=== PATIENT | female | born 1940 | race Caucasian/White ===

== ENCOUNTER 2019-10-30 17:29 | Inpatient (IN) | payer MEDICARE, OTHER ==
[2019-10-30] MEDS ORDERED: Lorazepam 0.5 MG TAB PO PRN (20:43)
[2019-10-30] MEDS ORDERED: Ondansetron ODT 4 MG TAB PO PRN (20:43)
[2019-10-30] MEDS: hydrALAZINE 25 MG TAB PO SCH (21:57)
[2019-10-30] MEDS: Melatonin 3 MG TAB PO SCH (21:58)
[2019-10-30] MEDS: Gabapentin 300 MG CAP PO SCH (21:58)
[2019-10-30] MEDS: traZODone HCl 50 MG TAB PO SCH (21:58)
[2019-10-30] MEDS: HYDROcodone/Acetaminophen 10/325 mg Tablet PO PRN (22:51)
[2019-10-31] MEDS: HYDROcodone/Acetaminophen 10/325 mg Tablet PO PRN ×2 (04:54→09:31)
[2019-10-31] MEDS: FLUoxetine HCl 10 MG CAP PO SCH (08:57)
[2019-10-31] MEDS: Cholecalciferol 1,000 UNITS (25 MCG) TAB PO SCH (08:57)
[2019-10-31] MEDS: Losartan Potassium 50 MG TAB PO SCH (08:58)
[2019-10-31] MEDS: Ferrous Sulfate 325 MG TAB PO SCH (08:58)
[2019-10-31] MEDS: NIFEdipine XL 30 MG TAB PO SCH (08:58)
[2019-10-31] MEDS: hydrALAZINE 25 MG TAB PO SCH ×3 (08:59→20:54)
[2019-10-31] MEDS: traMADol HCl 50 MG TAB PO PRN (20:54)
[2019-10-31] MEDS: Gabapentin 300 MG CAP PO SCH (20:55)
[2019-10-31] MEDS: traZODone HCl 50 MG TAB PO SCH (20:55)
[2019-10-31] MEDS: Melatonin 3 MG TAB PO SCH (20:55)
[2019-11-01] MEDS: HYDROcodone/Acetaminophen 10/325 mg Tablet PO PRN ×2 (03:52→10:44)
[2019-11-01] MEDS: Losartan Potassium 50 MG TAB PO SCH (09:27)
[2019-11-01] MEDS: hydrALAZINE 25 MG TAB PO SCH ×3 (09:28→20:51)
[2019-11-01] MEDS: Ferrous Sulfate 325 MG TAB PO SCH (09:28)
[2019-11-01] MEDS: FLUoxetine HCl 10 MG CAP PO SCH (09:29)
[2019-11-01] MEDS: Cholecalciferol 1,000 UNITS (25 MCG) TAB PO SCH (09:29)
[2019-11-01] MEDS: NIFEdipine XL 30 MG TAB PO SCH (09:30)
[2019-11-01] MEDS: Gabapentin 300 MG CAP PO SCH (20:51)
[2019-11-01] MEDS: Melatonin 3 MG TAB PO SCH (20:51)
[2019-11-01] MEDS: traZODone HCl 50 MG TAB PO SCH (20:51)
[2019-11-02 04:53] LABS: #Basophils 0.1 thou/uL (0.0-0.2); #Eosinphils 0.3 thou/uL (0.0-0.7); #Lymphocytes 1.7 thou/uL (1.20-3.40); #Neutrophils 5.2 thou/uL (1.40-6.50); %Basophils 1.8 % (0.0-1.0); %Eosinophils 3.3 % (0.0-10.0); %Lymphocytes 20.5 % (21.0-51.0); %Monocytes 11.9 % (0.0-10.0); %Neutrophils 62.5 % (42.0-75.0); Hemoglobin 9.3 g/dL (12.0-16.0); Mean Corpuscular Hemoglobin 30.9 pg (27.0-31.0); Mean Corpuscular Volume 96.6 fL (78.0-98.0); Mean Platelet Volume 6.2 fL (7.4-10.4); Platelet Count 209 thou/uL (130-400); RBC Distribution Width 12.1 % (11.5-14.5); Red Blood Cell (RBC) Count 2.99 mill/uL (4.20-5.40); White Blood Cell (WBC) Count 8.3 thou/uL (4.8-10.8)
[2019-11-02 05:05] LABS: Anion Gap 15 mmol/L (10-20); BUN (Urea Nitrogen) 27 mg/dL (9.8-20.1); Calc. Creatinine Clearance 32 mL/min (70-130); Calcium 8.5 mg/dL (7.8-10.44); Carbon Dioxide 18 mmol/L (23-31); Chloride 100 mmol/L (98-107); Estimated GFR-MDRD 22; Glucose 102 mg/dL (83-110); Potassium 4.6 mmol/L (3.5-5.1); Sodium 128 mmol/L (136-145)
[2019-11-02] MEDS: hydrALAZINE 25 MG TAB PO SCH ×3 (08:51→20:11)
[2019-11-02] MEDS: NIFEdipine XL 30 MG TAB PO SCH (08:52)
[2019-11-02] MEDS: FLUoxetine HCl 10 MG CAP PO SCH (08:52)
[2019-11-02] MEDS: Ferrous Sulfate 325 MG TAB PO SCH (08:52)
[2019-11-02] MEDS: Cholecalciferol 1,000 UNITS (25 MCG) TAB PO SCH (08:53)
[2019-11-02] MEDS: Losartan Potassium 50 MG TAB PO SCH (08:53)
[2019-11-02] MEDS: HYDROcodone/Acetaminophen 10/325 mg Tablet PO PRN ×2 (08:57→20:10)
[2019-11-02] MEDS: traMADol HCl 50 MG TAB PO PRN (15:13)
[2019-11-02] MEDS: traZODone HCl 50 MG TAB PO SCH (20:12)
[2019-11-02] MEDS: Gabapentin 300 MG CAP PO SCH (20:12)
[2019-11-02] MEDS: Melatonin 3 MG TAB PO SCH (20:15)
[2019-11-03] MEDS: traMADol HCl 50 MG TAB PO PRN ×2 (05:35→14:15)
[2019-11-03] MEDS: FLUoxetine HCl 10 MG CAP PO SCH (09:23)
[2019-11-03] MEDS: Ferrous Sulfate 325 MG TAB PO SCH (09:23)
[2019-11-03] MEDS: Cholecalciferol 1,000 UNITS (25 MCG) TAB PO SCH (09:23)
[2019-11-03] MEDS: NIFEdipine XL 30 MG TAB PO SCH (09:25)
[2019-11-03] MEDS: hydrALAZINE 25 MG TAB PO SCH ×3 (09:25→21:03)
[2019-11-03] MEDS: Losartan Potassium 50 MG TAB PO SCH (09:26)
[2019-11-03] MEDS: HYDROcodone/Acetaminophen 10/325 mg Tablet PO PRN ×2 (09:51→21:07)
[2019-11-03] MEDS: Gabapentin 300 MG CAP PO SCH (21:03)
[2019-11-03] MEDS: Melatonin 3 MG TAB PO SCH (21:03)
[2019-11-03] MEDS: traZODone HCl 50 MG TAB PO SCH (21:03)
[2019-11-04] MEDS: traMADol HCl 50 MG TAB PO PRN ×3 (05:57→20:55)
[2019-11-04] MEDS: hydrALAZINE 25 MG TAB PO SCH ×3 (08:45→20:55)
[2019-11-04] MEDS: Ferrous Sulfate 325 MG TAB PO SCH (08:47)
[2019-11-04] MEDS: FLUoxetine HCl 10 MG CAP PO SCH (08:47)
[2019-11-04] MEDS: NIFEdipine XL 30 MG TAB PO SCH (08:47)
[2019-11-04] MEDS: Cholecalciferol 1,000 UNITS (25 MCG) TAB PO SCH (08:48)
[2019-11-04] MEDS: Losartan Potassium 50 MG TAB PO SCH (08:48)
[2019-11-04] MEDS: HYDROcodone/Acetaminophen 10/325 mg Tablet PO PRN (09:19)
[2019-11-04] MEDS ORDERED: Nystatin Cream 15 GM TUBE TOP SCH (17:00)
[2019-11-04] MEDS ORDERED: Lidocaine Viscous Sol 2% 15 ml UD Cup SSP PRN (17:34)
[2019-11-04] MEDS: Cyclobenzaprine 10 MG TAB PO PRN (20:55)
[2019-11-04] MEDS: Nystatin Cream 15 GM TUBE TOP SCH (20:56)
[2019-11-04] MEDS: Gabapentin 300 MG CAP PO SCH (20:56)
[2019-11-04] MEDS: Melatonin 3 MG TAB PO SCH (20:56)
[2019-11-04] MEDS: traZODone HCl 50 MG TAB PO SCH (20:56)
[2019-11-05] MEDS: traMADol HCl 50 MG TAB PO PRN ×3 (03:14→20:28)
[2019-11-05] MEDS: Acetaminophen 325 MG TAB PO PRN ×2 (08:32→14:34)
[2019-11-05] MEDS: Ferrous Sulfate 325 MG TAB PO SCH (08:32)
[2019-11-05] MEDS: Cholecalciferol 1,000 UNITS (25 MCG) TAB PO SCH (08:32)
[2019-11-05] MEDS: FLUoxetine HCl 10 MG CAP PO SCH (08:33)
[2019-11-05] MEDS: NIFEdipine XL 30 MG TAB PO SCH (08:33)
[2019-11-05] MEDS: hydrALAZINE 25 MG TAB PO SCH ×3 (08:34→20:29)
[2019-11-05] MEDS: Nystatin Cream 15 GM TUBE TOP SCH ×2 (08:35→20:29)
[2019-11-05] MEDS: Losartan Potassium 50 MG TAB PO SCH (08:35)
[2019-11-05] MEDS: Cyclobenzaprine 10 MG TAB PO PRN (20:29)
[2019-11-05] MEDS: Gabapentin 300 MG CAP PO SCH (20:29)
[2019-11-05] MEDS: Melatonin 3 MG TAB PO SCH (20:29)
[2019-11-05] MEDS: traZODone HCl 50 MG TAB PO SCH (20:29)
[2019-11-05] MEDS: Milk Of Magnesia 30 ML UDCUP PO PRN (20:30)
[2019-11-06] MEDS: Cholecalciferol 1,000 UNITS (25 MCG) TAB PO SCH (09:24)
[2019-11-06] MEDS: FLUoxetine HCl 10 MG CAP PO SCH (09:24)
[2019-11-06] MEDS: hydrALAZINE 25 MG TAB PO SCH ×3 (09:24→21:05)
[2019-11-06] MEDS: NIFEdipine XL 30 MG TAB PO SCH (09:25)
[2019-11-06] MEDS: Cyclobenzaprine 10 MG TAB PO PRN ×2 (09:25→15:40)
[2019-11-06] MEDS: Losartan Potassium 50 MG TAB PO SCH (09:25)
[2019-11-06] MEDS: Ferrous Sulfate 325 MG TAB PO SCH (09:25)
[2019-11-06] MEDS: Nystatin Cream 15 GM TUBE TOP SCH ×2 (09:26→21:26)
[2019-11-06] MEDS: traMADol HCl 50 MG TAB PO PRN ×2 (12:36→19:08)
[2019-11-06] MEDS: traZODone HCl 50 MG TAB PO SCH (21:01)
[2019-11-06] MEDS: Gabapentin 300 MG CAP PO SCH (21:01)
[2019-11-06] MEDS: Melatonin 3 MG TAB PO SCH (21:01)
[2019-11-07] MEDS: traMADol HCl 50 MG TAB PO PRN ×3 (03:23→19:59)
[2019-11-07 05:38] LABS: Anion Gap 10 mmol/L (10-20); BUN (Urea Nitrogen) 31 mg/dL (9.8-20.1); Calc. Creatinine Clearance 26 mL/min (70-130); Calcium 8.2 mg/dL (7.8-10.44); Carbon Dioxide 25 mmol/L (23-31); Chloride 104 mmol/L (98-107); Estimated GFR-MDRD 18; Glucose 85 mg/dL (83-110); Potassium 5.4 mmol/L (3.5-5.1); Sodium 134 mmol/L (136-145)
[2019-11-07] MEDS: Acetaminophen 325 MG TAB PO PRN (05:45)
[2019-11-07] MEDS: Ferrous Sulfate 325 MG TAB PO SCH (08:19)
[2019-11-07] MEDS: hydrALAZINE 25 MG TAB PO SCH ×3 (08:20→20:00)
[2019-11-07] MEDS: NIFEdipine XL 30 MG TAB PO SCH (08:20)
[2019-11-07] MEDS: FLUoxetine HCl 10 MG CAP PO SCH (08:20)
[2019-11-07] MEDS: Cholecalciferol 1,000 UNITS (25 MCG) TAB PO SCH (08:20)
[2019-11-07] MEDS: Nystatin Cream 15 GM TUBE TOP SCH ×2 (08:21→20:05)
[2019-11-07] MEDS: Losartan Potassium 50 MG TAB PO SCH (08:21)
[2019-11-07] MEDS: Cyclobenzaprine 10 MG TAB PO PRN ×2 (08:21→19:59)
[2019-11-07 15:23] LABS: Bilirubin Negative (Negative); Blood, Urine Trace (Negative); Clarity Cloudy (Clear); Glucose, Urine (Dipstick) Negative (Negative); Ketone, Urine Negative (Negative); Leukocyte Moderate (Negative); Nitrite Negative (Negative); Protein, Urine (Dipstick) > or equal to 300 mg/dL (Neg-Trace); Urobilinogen 0.2 mg/dL (Less than 2)
[2019-11-07 15:29] LABS: RBC/HPF 0-3 HPF (0-3); WBC/HPF Greater Than 50 HPF (0-3)
[2019-11-07 15:30] LABS: Bacteria/HPF 4+ HPF (None Seen); Squamous Epithelial 0-3 HPF (0-3)
[2019-11-07 15:32] LABS: Urine Culture Reflex Yes Yes
[2019-11-07] MEDS: Fluconazole 100 MG TAB PO SCH (15:53)
[2019-11-07] MEDS: traZODone HCl 50 MG TAB PO SCH (19:59)
[2019-11-07] MEDS: Gabapentin 300 MG CAP PO SCH (19:59)
[2019-11-07] MEDS: Melatonin 3 MG TAB PO SCH (20:00)
[2019-11-08] MEDS: traMADol HCl 50 MG TAB PO PRN ×4 (03:40→20:25)
[2019-11-08] MEDS: Cholecalciferol 1,000 UNITS (25 MCG) TAB PO SCH (09:07)
[2019-11-08] MEDS: FLUoxetine HCl 10 MG CAP PO SCH (09:07)
[2019-11-08] MEDS: Ferrous Sulfate 325 MG TAB PO SCH (09:08)
[2019-11-08] MEDS: hydrALAZINE 25 MG TAB PO SCH ×3 (09:08→20:25)
[2019-11-08] MEDS: NIFEdipine XL 30 MG TAB PO SCH (09:09)
[2019-11-08] MEDS: Nystatin Cream 15 GM TUBE TOP SCH ×2 (09:09→20:26)
[2019-11-08] MEDS: Cyclobenzaprine 10 MG TAB PO PRN ×2 (13:00→20:25)
[2019-11-08] MEDS: Gabapentin 300 MG CAP PO SCH (20:25)
[2019-11-08] MEDS: Melatonin 3 MG TAB PO SCH (20:25)
[2019-11-08] MEDS: traZODone HCl 50 MG TAB PO SCH (20:26)
[2019-11-09] MEDS: traMADol HCl 50 MG TAB PO PRN ×3 (05:40→21:18)
[2019-11-09] MEDS: FLUoxetine HCl 10 MG CAP PO SCH (08:51)
[2019-11-09] MEDS: Acetaminophen 325 MG TAB PO PRN ×2 (08:51→17:39)
[2019-11-09] MEDS: Cholecalciferol 1,000 UNITS (25 MCG) TAB PO SCH (08:52)
[2019-11-09] MEDS: Cyclobenzaprine 10 MG TAB PO PRN ×2 (08:52→15:07)
[2019-11-09] MEDS: Ferrous Sulfate 325 MG TAB PO SCH (08:52)
[2019-11-09] MEDS: hydrALAZINE 25 MG TAB PO SCH ×3 (08:54→21:18)
[2019-11-09] MEDS: NIFEdipine XL 30 MG TAB PO SCH (08:54)
[2019-11-09] MEDS: Nystatin Cream 15 GM TUBE TOP SCH ×2 (09:10→21:34)
[2019-11-09] MEDS: Melatonin 3 MG TAB PO SCH (21:19)
[2019-11-09] MEDS: traZODone HCl 50 MG TAB PO SCH (21:19)
[2019-11-09] MEDS: Gabapentin 300 MG CAP PO SCH (21:19)
[2019-11-10] MEDS: Acetaminophen 325 MG TAB PO PRN ×3 (02:39→20:50)
[2019-11-10] MEDS: NIFEdipine XL 30 MG TAB PO SCH (08:23)
[2019-11-10] MEDS: hydrALAZINE 25 MG TAB PO SCH ×3 (08:24→20:51)
[2019-11-10] MEDS: FLUoxetine HCl 10 MG CAP PO SCH (08:24)
[2019-11-10] MEDS: Cholecalciferol 1,000 UNITS (25 MCG) TAB PO SCH (08:25)
[2019-11-10] MEDS: Ferrous Sulfate 325 MG TAB PO SCH (08:25)
[2019-11-10] MEDS: traMADol HCl 50 MG TAB PO PRN ×2 (08:25→15:57)
[2019-11-10] MEDS: Nystatin Cream 15 GM TUBE TOP SCH ×2 (08:26→20:57)
[2019-11-10] MEDS: Losartan Potassium 50 MG TAB PO SCH (08:27)
[2019-11-10] MEDS: Cyclobenzaprine 10 MG TAB PO PRN (12:16)
[2019-11-10] MEDS ORDERED: Fluconazole 100 MG TAB PO SCH (15:45)
[2019-11-10] MEDS: Fluconazole 100 MG TAB PO SCH (15:55)
[2019-11-10] MEDS: traZODone HCl 50 MG TAB PO SCH (20:50)
[2019-11-10] MEDS: Gabapentin 300 MG CAP PO SCH (20:50)
[2019-11-10] MEDS: Melatonin 3 MG TAB PO SCH (20:50)
[2019-11-11] MEDS: NIFEdipine XL 30 MG TAB PO SCH (08:47)
[2019-11-11] MEDS: FLUoxetine HCl 10 MG CAP PO SCH (08:47)
[2019-11-11] MEDS: Ferrous Sulfate 325 MG TAB PO SCH (08:48)
[2019-11-11] MEDS: Cholecalciferol 1,000 UNITS (25 MCG) TAB PO SCH (08:48)
[2019-11-11] MEDS: Losartan Potassium 50 MG TAB PO SCH (08:48)
[2019-11-11] MEDS: Nystatin Cream 15 GM TUBE TOP SCH ×2 (08:49→20:30)
[2019-11-11] MEDS: hydrALAZINE 25 MG TAB PO SCH ×3 (08:49→20:30)
[2019-11-11] MEDS: traMADol HCl 50 MG TAB PO PRN ×2 (08:49→17:25)
[2019-11-11] MEDS: Cyclobenzaprine 10 MG TAB PO PRN (14:55)
[2019-11-11] MEDS: traZODone HCl 50 MG TAB PO SCH (20:30)
[2019-11-11] MEDS: Melatonin 3 MG TAB PO SCH (20:30)
[2019-11-11] MEDS: Gabapentin 300 MG CAP PO SCH (20:30)
[2019-11-11] MEDS: Acetaminophen 325 MG TAB PO PRN (20:31)
[2019-11-12] MEDS: traMADol HCl 50 MG TAB PO PRN ×3 (05:25→20:05)
[2019-11-12] MEDS: NIFEdipine XL 30 MG TAB PO SCH (07:40)
[2019-11-12] MEDS: Nystatin Cream 15 GM TUBE TOP SCH ×2 (07:40→20:05)
[2019-11-12] MEDS: Cholecalciferol 1,000 UNITS (25 MCG) TAB PO SCH (07:41)
[2019-11-12] MEDS: Losartan Potassium 50 MG TAB PO SCH (07:41)
[2019-11-12] MEDS: Acetaminophen 325 MG TAB PO PRN ×2 (07:42→20:05)
[2019-11-12] MEDS: hydrALAZINE 25 MG TAB PO SCH ×3 (07:42→20:04)
[2019-11-12] MEDS: Ferrous Sulfate 325 MG TAB PO SCH (07:42)
[2019-11-12] MEDS: FLUoxetine HCl 10 MG CAP PO SCH (07:42)
[2019-11-12] MEDS: Cyclobenzaprine 10 MG TAB PO PRN ×2 (09:30→18:07)
[2019-11-12] MEDS: Gabapentin 300 MG CAP PO SCH (20:05)
[2019-11-12] MEDS: traZODone HCl 50 MG TAB PO SCH (20:05)
[2019-11-12] MEDS: Melatonin 3 MG TAB PO SCH (20:05)
[2019-11-13] MEDS: Acetaminophen 325 MG TAB PO PRN ×2 (05:03→14:30)
[2019-11-13] MEDS: traMADol HCl 50 MG TAB PO PRN ×3 (05:04→21:00)
[2019-11-13] MEDS: Cholecalciferol 1,000 UNITS (25 MCG) TAB PO SCH (08:31)
[2019-11-13] MEDS: NIFEdipine XL 30 MG TAB PO SCH (08:31)
[2019-11-13] MEDS: FLUoxetine HCl 10 MG CAP PO SCH (08:31)
[2019-11-13] MEDS: Ferrous Sulfate 325 MG TAB PO SCH (08:32)
[2019-11-13] MEDS: hydrALAZINE 25 MG TAB PO SCH ×3 (08:32→20:56)
[2019-11-13] MEDS: Losartan Potassium 50 MG TAB PO SCH (08:32)
[2019-11-13] MEDS: Cyclobenzaprine 10 MG TAB PO PRN ×2 (08:49→18:35)
[2019-11-13] MEDS: Nystatin Cream 15 GM TUBE TOP SCH ×2 (09:07→20:58)
[2019-11-13] MEDS: Gabapentin 300 MG CAP PO SCH (20:56)
[2019-11-13] MEDS: Melatonin 3 MG TAB PO SCH (20:56)
[2019-11-13] MEDS: traZODone HCl 50 MG TAB PO SCH (20:56)
[2019-11-14] MEDS: traMADol HCl 50 MG TAB PO PRN ×4 (03:57→23:17)
[2019-11-14 05:13] LABS: Anion Gap 14 mmol/L (10-20); BUN (Urea Nitrogen) 28 mg/dL (9.8-20.1); Calc. Creatinine Clearance 24 mL/min (70-130); Calcium 8.5 mg/dL (7.8-10.44); Carbon Dioxide 21 mmol/L (23-31); Chloride 105 mmol/L (98-107); Estimated GFR-MDRD 16; Glucose 78 mg/dL (83-110); Potassium 5.3 mmol/L (3.5-5.1); Sodium 135 mmol/L (136-145)
[2019-11-14] MEDS: Acetaminophen 325 MG TAB PO PRN (08:24)
[2019-11-14] MEDS: FLUoxetine HCl 10 MG CAP PO SCH (08:25)
[2019-11-14] MEDS: Losartan Potassium 50 MG TAB PO SCH (08:25)
[2019-11-14] MEDS: NIFEdipine XL 30 MG TAB PO SCH (08:25)
[2019-11-14] MEDS: Cyclobenzaprine 10 MG TAB PO PRN (08:26)
[2019-11-14] MEDS: Cholecalciferol 1,000 UNITS (25 MCG) TAB PO SCH (08:27)
[2019-11-14] MEDS: Ferrous Sulfate 325 MG TAB PO SCH (08:27)
[2019-11-14] MEDS: hydrALAZINE 25 MG TAB PO SCH ×3 (08:27→21:52)
[2019-11-14] MEDS: Nystatin Cream 15 GM TUBE TOP SCH ×2 (08:28→21:52)
[2019-11-14] MEDS ORDERED: Gabapentin 100 MG CAP PO SCH (14:15)
[2019-11-14] MEDS: Melatonin 3 MG TAB PO SCH (21:52)
[2019-11-14] MEDS: traZODone HCl 50 MG TAB PO SCH (21:52)
[2019-11-14] MEDS: Gabapentin 300 MG CAP PO SCH (21:52)
[2019-11-15] MEDS: traMADol HCl 50 MG TAB PO PRN ×2 (06:13→16:20)
[2019-11-15] MEDS: hydrALAZINE 25 MG TAB PO SCH ×3 (08:57→21:16)
[2019-11-15] MEDS: FLUoxetine HCl 10 MG CAP PO SCH (08:58)
[2019-11-15] MEDS: Losartan Potassium 50 MG TAB PO SCH (08:59)
[2019-11-15] MEDS: NIFEdipine XL 30 MG TAB PO SCH (09:00)
[2019-11-15] MEDS: Cholecalciferol 1,000 UNITS (25 MCG) TAB PO SCH (09:01)
[2019-11-15] MEDS: Ferrous Sulfate 325 MG TAB PO SCH (09:01)
[2019-11-15] MEDS: Gabapentin 100 MG CAP PO SCH ×2 (09:02→12:17)
[2019-11-15] MEDS: Nystatin Cream 15 GM TUBE TOP SCH ×2 (09:04→21:21)
[2019-11-15] MEDS: Cyclobenzaprine 10 MG TAB PO PRN (12:52)
[2019-11-15] MEDS: Gabapentin 300 MG CAP PO SCH (21:15)
[2019-11-15] MEDS: traZODone HCl 50 MG TAB PO SCH (21:15)
[2019-11-15] MEDS: Acetaminophen 325 MG TAB PO PRN (21:15)
[2019-11-15] MEDS: Melatonin 3 MG TAB PO SCH (21:15)
[2019-11-16] MEDS: hydrALAZINE 25 MG TAB PO SCH ×3 (09:29→20:54)
[2019-11-16] MEDS: Losartan Potassium 50 MG TAB PO SCH (09:30)
[2019-11-16] MEDS: FLUoxetine HCl 10 MG CAP PO SCH (09:30)
[2019-11-16] MEDS: NIFEdipine XL 30 MG TAB PO SCH (09:31)
[2019-11-16] MEDS: Cholecalciferol 1,000 UNITS (25 MCG) TAB PO SCH (09:32)
[2019-11-16] MEDS: Ferrous Sulfate 325 MG TAB PO SCH (09:33)
[2019-11-16] MEDS: Gabapentin 100 MG CAP PO SCH ×2 (09:33→12:16)
[2019-11-16] MEDS: Nystatin Cream 15 GM TUBE TOP SCH ×2 (09:34→20:56)
[2019-11-16] MEDS: traMADol HCl 50 MG TAB PO PRN ×2 (10:49→20:52)
[2019-11-16] MEDS: Cyclobenzaprine 10 MG TAB PO PRN (15:51)
[2019-11-16] MEDS: Gabapentin 300 MG CAP PO SCH (20:53)
[2019-11-16] MEDS: traZODone HCl 50 MG TAB PO SCH (20:54)
[2019-11-16] MEDS: Melatonin 3 MG TAB PO SCH (20:54)
[2019-11-17] MEDS: NIFEdipine XL 30 MG TAB PO SCH (08:02)
[2019-11-17] MEDS: FLUoxetine HCl 10 MG CAP PO SCH (08:02)
[2019-11-17] MEDS: Ferrous Sulfate 325 MG TAB PO SCH (08:03)
[2019-11-17] MEDS: traMADol HCl 50 MG TAB PO PRN ×3 (08:03→21:22)
[2019-11-17] MEDS: Gabapentin 100 MG CAP PO SCH ×2 (08:03→11:33)
[2019-11-17] MEDS: Nystatin Cream 15 GM TUBE TOP SCH ×2 (08:04→21:00)
[2019-11-17] MEDS: hydrALAZINE 25 MG TAB PO SCH ×3 (08:04→20:59)
[2019-11-17] MEDS: Losartan Potassium 50 MG TAB PO SCH (08:04)
[2019-11-17] MEDS: Cholecalciferol 1,000 UNITS (25 MCG) TAB PO SCH (08:04)
[2019-11-17] MEDS: Cyclobenzaprine 10 MG TAB PO PRN ×2 (11:33→21:02)
[2019-11-17] MEDS: Acetaminophen 325 MG TAB PO PRN (11:33)
[2019-11-17] MEDS: Gabapentin 300 MG CAP PO SCH (20:59)
[2019-11-17] MEDS: Melatonin 3 MG TAB PO SCH (20:59)
[2019-11-17] MEDS: traZODone HCl 50 MG TAB PO SCH (20:59)
[2019-11-17] MEDS: Milk Of Magnesia 30 ML UDCUP PO PRN (21:02)
[2019-11-18] MEDS: traMADol HCl 50 MG TAB PO PRN ×2 (06:00→20:41)
[2019-11-18] MEDS: Cyclobenzaprine 10 MG TAB PO PRN (06:01)
[2019-11-18] MEDS: Nystatin Cream 15 GM TUBE TOP SCH ×2 (08:54→20:37)
[2019-11-18] MEDS: Milk Of Magnesia 30 ML UDCUP PO PRN (08:54)
[2019-11-18] MEDS: Cholecalciferol 1,000 UNITS (25 MCG) TAB PO SCH (08:56)
[2019-11-18] MEDS: FLUoxetine HCl 10 MG CAP PO SCH (08:56)
[2019-11-18] MEDS: Gabapentin 100 MG CAP PO SCH ×2 (08:57→12:18)
[2019-11-18] MEDS: Ferrous Sulfate 325 MG TAB PO SCH (08:57)
[2019-11-18] MEDS: Losartan Potassium 50 MG TAB PO SCH (08:58)
[2019-11-18] MEDS: hydrALAZINE 25 MG TAB PO SCH ×3 (09:03→20:37)
[2019-11-18] MEDS: NIFEdipine XL 30 MG TAB PO SCH (09:04)
[2019-11-18] MEDS: Gabapentin 300 MG CAP PO SCH (20:36)
[2019-11-18] MEDS: Melatonin 3 MG TAB PO SCH (20:37)
[2019-11-18] MEDS: traZODone HCl 50 MG TAB PO SCH (20:37)
[2019-11-19] MEDS: hydrALAZINE 25 MG TAB PO SCH ×3 (09:06→21:05)
[2019-11-19] MEDS: Losartan Potassium 50 MG TAB PO SCH (09:07)
[2019-11-19] MEDS: Cholecalciferol 1,000 UNITS (25 MCG) TAB PO SCH (09:07)
[2019-11-19] MEDS: Ferrous Sulfate 325 MG TAB PO SCH (09:07)
[2019-11-19] MEDS: Gabapentin 100 MG CAP PO SCH ×2 (09:07→12:41)
[2019-11-19] MEDS: FLUoxetine HCl 10 MG CAP PO SCH (09:07)
[2019-11-19] MEDS: NIFEdipine XL 30 MG TAB PO SCH (09:08)
[2019-11-19] MEDS: Nystatin Cream 15 GM TUBE TOP SCH ×2 (09:09→21:04)
[2019-11-19] MEDS: Milk Of Magnesia 30 ML UDCUP PO PRN (10:06)
[2019-11-19] MEDS: traMADol HCl 50 MG TAB PO PRN ×2 (12:39→21:05)
[2019-11-19] MEDS: Acetaminophen 325 MG TAB PO PRN (12:39)
[2019-11-19 17:41] LABS: #Basophils 0.1 thou/uL (0.0-0.2); #Eosinphils 0.3 thou/uL (0.0-0.7); #Lymphocytes 1.8 thou/uL (1.20-3.40); #Monocytes 0.7 thou/uL (0.11-0.59); #Neutrophils 3.7 thou/uL (1.40-6.50); %Basophils 1.1 % (0.0-1.0); %Eosinophils 5.2 % (0.0-10.0); %Lymphocytes 27.4 % (21.0-51.0); %Monocytes 10.2 % (0.0-10.0); %Neutrophils 56.1 % (42.0-75.0); Hemoglobin 8.2 g/dL (12.0-16.0); Mean Corpuscular HGB CONC 30.1 g/dL (32.0-36.0); Mean Corpuscular Hemoglobin 29.8 pg (27.0-31.0); Mean Corpuscular Volume 98.9 fL (78.0-98.0); Mean Platelet Volume 5.4 fL (7.4-10.4); Platelet Count 282 thou/uL (130-400); RBC Distribution Width 12.1 % (11.5-14.5); Red Blood Cell (RBC) Count 2.75 mill/uL (4.20-5.40); White Blood Cell (WBC) Count 6.6 thou/uL (4.8-10.8)
[2019-11-19 17:55] LABS: Anion Gap 16 mmol/L (10-20); BUN (Urea Nitrogen) 33 mg/dL (9.8-20.1); Calc. Creatinine Clearance 25 mL/min (70-130); Calcium 8.3 mg/dL (7.8-10.44); Carbon Dioxide 20 mmol/L (23-31); Chloride 100 mmol/L (98-107); Estimated GFR-MDRD 17; Glucose 82 mg/dL (83-110); Potassium 6.4 mmol/L (3.5-5.1)
[2019-11-19 17:59] LABS: Sodium 130 mmol/L (136-145)
[2019-11-19] MEDS: Sodium Chloride 0.9% 1,000 ML IV SCH (20:27)
[2019-11-19] MEDS: traZODone HCl 50 MG TAB PO SCH (21:04)
[2019-11-19] MEDS: Gabapentin 300 MG CAP PO SCH (21:05)
[2019-11-19] MEDS: Melatonin 3 MG TAB PO SCH (21:05)
[2019-11-20] MEDS: Sodium Chloride 0.9% 1,000 ML IV SCH ×3 (05:10→15:26)
[2019-11-20 05:45] LABS: Anion Gap 14 mmol/L (10-20); BUN (Urea Nitrogen) 32 mg/dL (9.8-20.1); Calc. Creatinine Clearance 25 mL/min (70-130); Calcium 8.3 mg/dL (7.8-10.44); Carbon Dioxide 20 mmol/L (23-31); Chloride 103 mmol/L (98-107); Estimated GFR-MDRD 17; Glucose 89 mg/dL (83-110); Potassium 5.2 mmol/L (3.5-5.1); Sodium 132 mmol/L (136-145)
[2019-11-20] MEDS: Nystatin Cream 15 GM TUBE TOP SCH ×3 (07:30→23:00)
[2019-11-20] MEDS ORDERED: Polyethylene Glycol 3350 17 GM Packet PO SCH (09:00)
[2019-11-20] MEDS: Cholecalciferol 1,000 UNITS (25 MCG) TAB PO SCH (10:05)
[2019-11-20] MEDS: FLUoxetine HCl 10 MG CAP PO SCH (10:13)
[2019-11-20] MEDS: Gabapentin 100 MG CAP PO SCH ×2 (10:14→13:09)
[2019-11-20] MEDS: hydrALAZINE 25 MG TAB PO SCH ×3 (10:14→20:30)
[2019-11-20] MEDS: Ferrous Sulfate 325 MG TAB PO SCH (10:14)
[2019-11-20] MEDS: NIFEdipine XL 30 MG TAB PO SCH (10:14)
[2019-11-20] MEDS: Acetaminophen 325 MG TAB PO PRN (13:21)
[2019-11-20] MEDS ORDERED: Acetaminophen 650 MG Suppository PR PRN (13:49)
[2019-11-20 13:57] LABS: ALT (SGPT) 15 U/L (8-55); AST (SGOT) 27 U/L (5-34); Albumin 3.1 g/dL (3.4-4.8); Alkaline Phosphatase 103 U/L (40-110); Anion Gap 16 mmol/L (10-20); BUN (Urea Nitrogen) 31 mg/dL (9.8-20.1); Bilirubin, Total 0.3 mg/dL (0.2-1.2); Calc. Creatinine Clearance 28 mL/min (70-130); Calcium 8.1 mg/dL (7.8-10.44); Carbon Dioxide 20 mmol/L (23-31); Chloride 102 mmol/L (98-107); Estimated GFR-MDRD 19; Globulin 2.7 g/dL (2.4-3.5); Glucose 103 mg/dL (83-110); Potassium 5.2 mmol/L (3.5-5.1); Protein, Total 5.8 g/dL (6.0-8.3); Sodium 133 mmol/L (136-145)
[2019-11-20 14:21] LABS: Band 15 % (5-11); Hemoglobin 8.5 g/dL (12.0-16.0); Lymphocytes 3 % (21-51); MDiff Complete? YES; Mean Corpuscular HGB CONC 31.6 g/dL (32.0-36.0); Mean Corpuscular Volume 98.1 fL (78.0-98.0); Mean Platelet Volume 5.4 fL (7.4-10.4); Monocytes 4 % (0-10); Neutrophil 77 % (42-75); Platelet Count 286 thou/uL (130-400); Platelet Morphology Comment Appears Adequate; RBC Distribution Width 12.1 % (11.5-14.5); Red Blood Cell (RBC) Count 2.74 mill/uL (4.20-5.40); White Blood Cell (WBC) Count 18.3 thou/uL (4.8-10.8)
[2019-11-20 14:43] LABS: Bilirubin Negative (Negative); Blood, Urine Trace (Negative); Clarity Hazy (Clear); Glucose, Urine (Dipstick) Negative (Negative); Ketone, Urine Negative (Negative); Leukocyte Negative (Negative); Nitrite Negative (Negative); Protein, Urine (Dipstick) > or equal to 300 mg/dL (Neg-Trace)
[2019-11-20 14:57] LABS: Bacteria/HPF 2+ HPF (None Seen); RBC/HPF 0-3 HPF (0-3); Squamous Epithelial 0-3 HPF (0-3); WBC/HPF 0-3 HPF (0-3)
--- NOTE | 2019-11-20 15:23 | RAD ---
Exam: Chest one view HISTORY:Fever Comparison: 10/26/2019 FINDINGS: Cardiac silhouette:Cardiomegaly Aorta: Unremarkable Pulmonary vessels: Normal Costophrenic angles: Clear LUNGS: No masses or consolidation. Pneumothorax: None Osseous abnormalities: Cervical fusion is redemonstrated IMPRESSION: Cardiomegaly, without evidence of congestive heart failure
[2019-11-20] MEDS ORDERED: Morphine 2 MG/ML VIAL SLOW IVP PRN (17:02)
[2019-11-20] MEDS ORDERED: hydrALAZINE 20 MG/ML VIAL SLOW IVP PRN (17:03)
[2019-11-20] MEDS ORDERED: traMADol HCl 50 MG TAB PO PRN (17:05)
[2019-11-20] MEDS ORDERED: Piperacillin/Tazobactam 2.25 GM in Sodium Chloride 0.9% 100 ML IVPB SCH (18:30)
--- NOTE | 2019-11-20 19:20 | CT ---
CT chest noncontrast CT abdomen and pelvis noncontrast HISTORY: Fever. FINDINGS: Lungs are well-inflated. No lobar consolidation. Calcification throughout the arterial structures. Small amount of pericardial fluid. Small hiatal hernia contains a hyperdense object likely representing medication. Gallbladder surgically absent. Postoperative changes of the anterior abdominal wall. Simple cysts and hyperdense cysts of the kidneys again demonstrated. Degenerative and postoperative changes are apparent throughout the lumbar spine. Lack of contrast limits evaluation of the soft tissues. There is subtle circumferential wall thickeni ng involving a 10 cm segment of the left colon. No adjacent fat stranding or fluid. IMPRESSION : Short segment mild inflammation of the left colon. Please correlate for nonspecific left-sided coliti s, possibly infectious. Small amount of pericardial fluid is nonspecific.
[2019-11-20] MEDS: Gabapentin 300 MG CAP PO SCH (21:30)
[2019-11-20] MEDS: Melatonin 3 MG TAB PO SCH (21:30)
[2019-11-20] MEDS: traZODone HCl 50 MG TAB PO SCH (23:07)
[2019-11-21] MEDS: Piperacillin/Tazobactam 2.25 GM in Sodium Chloride 0.9% 100 ML IVPB SCH ×5 (00:06→23:30)
[2019-11-21] MEDS: Sodium Chloride 0.9% 1,000 ML IV SCH ×6 (00:06→23:30)
[2019-11-21 05:49] LABS: #Basophils 0.1 thou/uL (0.0-0.2); #Eosinphils 0.2 thou/uL (0.0-0.7); #Lymphocytes 1.7 thou/uL (1.20-3.40); #Monocytes 0.9 thou/uL (0.11-0.59); #Neutrophils 7.9 thou/uL (1.40-6.50); %Basophils 0.7 % (0.0-1.0); %Eosinophils 2.1 % (0.0-10.0); %Lymphocytes 15.4 % (21.0-51.0); %Monocytes 8.6 % (0.0-10.0); %Neutrophils 73.2 % (42.0-75.0); Hemoglobin 8.2 g/dL (12.0-16.0); Mean Corpuscular HGB CONC 30.4 g/dL (32.0-36.0); Mean Corpuscular Hemoglobin 30.1 pg (27.0-31.0); Mean Corpuscular Volume 99.3 fL (78.0-98.0); Mean Platelet Volume 5.9 fL (7.4-10.4); Platelet Count 267 thou/uL (130-400); RBC Distribution Width 12.2 % (11.5-14.5); Red Blood Cell (RBC) Count 2.74 mill/uL (4.20-5.40); White Blood Cell (WBC) Count 10.8 thou/uL (4.8-10.8)
[2019-11-21 06:01] LABS: Anion Gap 12 mmol/L (10-20); BUN (Urea Nitrogen) 35 mg/dL (9.8-20.1); Calc. Creatinine Clearance 27 mL/min (70-130); Calcium 7.8 mg/dL (7.8-10.44); Carbon Dioxide 22 mmol/L (23-31); Chloride 106 mmol/L (98-107); Estimated GFR-MDRD 18; Glucose 84 mg/dL (83-110); Potassium 4.4 mmol/L (3.5-5.1); Sodium 136 mmol/L (136-145)
[2019-11-21] MEDS: NIFEdipine XL 30 MG TAB PO SCH (11:57)
[2019-11-21] MEDS: FLUoxetine HCl 10 MG CAP PO SCH (11:59)
[2019-11-21] MEDS: Nystatin Cream 15 GM TUBE TOP SCH ×2 (12:00→21:53)
[2019-11-21] MEDS: Cholecalciferol 1,000 UNITS (25 MCG) TAB PO SCH (12:00)
[2019-11-21] MEDS: hydrALAZINE 25 MG TAB PO SCH ×3 (12:00→21:52)
[2019-11-21] MEDS: Ferrous Sulfate 325 MG TAB PO SCH (12:01)
[2019-11-21] MEDS ORDERED: Morphine 2 MG/ML SYRINGE SLOW IVP PRN (12:50)
[2019-11-21] MEDS: traZODone HCl 50 MG TAB PO SCH (21:52)
[2019-11-21] MEDS: Acetaminophen 325 MG TAB PO PRN (21:52)
[2019-11-21] MEDS: Gabapentin 300 MG CAP PO SCH (21:52)
[2019-11-21] MEDS: Melatonin 3 MG TAB PO SCH (21:53)
[2019-11-22 05:38] LABS: #Basophils 0.1 thou/uL (0.0-0.2); #Eosinphils 0.6 thou/uL (0.0-0.7); #Lymphocytes 1.5 thou/uL (1.20-3.40); #Monocytes 0.7 thou/uL (0.11-0.59); %Basophils 1.2 % (0.0-1.0); %Eosinophils 8.1 % (0.0-10.0); %Lymphocytes 22.2 % (21.0-51.0); %Monocytes 10.7 % (0.0-10.0); %Neutrophils 57.7 % (42.0-75.0); Hemoglobin 7.9 g/dL (12.0-16.0); Mean Corpuscular HGB CONC 30.9 g/dL (32.0-36.0); Mean Corpuscular Hemoglobin 30.6 pg (27.0-31.0); Mean Corpuscular Volume 98.9 fL (78.0-98.0); Mean Platelet Volume 5.2 fL (7.4-10.4); Platelet Count 287 thou/uL (130-400); RBC Distribution Width 12.1 % (11.5-14.5); Red Blood Cell (RBC) Count 2.58 mill/uL (4.20-5.40); White Blood Cell (WBC) Count 6.9 thou/uL (4.8-10.8)
[2019-11-22 05:45] LABS: Anion Gap 15 mmol/L (10-20); BUN (Urea Nitrogen) 31 mg/dL (9.8-20.1); Calc. Creatinine Clearance 27 mL/min (70-130); Calcium 7.8 mg/dL (7.8-10.44); Carbon Dioxide 19 mmol/L (23-31); Chloride 110 mmol/L (98-107); Estimated GFR-MDRD 19; Glucose 80 mg/dL (83-110); Potassium 4.1 mmol/L (3.5-5.1); Sodium 140 mmol/L (136-145)
[2019-11-22] MEDS: Piperacillin/Tazobactam 2.25 GM in Sodium Chloride 0.9% 100 ML IVPB SCH ×3 (07:14→17:43)
[2019-11-22] MEDS: Cholecalciferol 1,000 UNITS (25 MCG) TAB PO SCH (09:08)
[2019-11-22] MEDS: Ferrous Sulfate 325 MG TAB PO SCH (09:09)
[2019-11-22] MEDS: NIFEdipine XL 30 MG TAB PO SCH (09:09)
[2019-11-22] MEDS: FLUoxetine HCl 10 MG CAP PO SCH (09:09)
[2019-11-22] MEDS: Floranex Packet PO SCH (09:10)
[2019-11-22] MEDS: hydrALAZINE 25 MG TAB PO SCH ×3 (09:10→21:14)
[2019-11-22] MEDS: Nystatin Cream 15 GM TUBE TOP SCH ×2 (09:11→21:15)
[2019-11-22] MEDS: traMADol HCl 50 MG TAB PO PRN ×2 (10:13→21:13)
[2019-11-22] MEDS: Sodium Chloride 0.9% 1,000 ML IV SCH (12:04)
[2019-11-22] MEDS: Cyclobenzaprine 10 MG TAB PO PRN (13:34)
[2019-11-22] MEDS: Acetaminophen 325 MG TAB PO PRN (18:42)
[2019-11-22] MEDS: traZODone HCl 50 MG TAB PO SCH (21:14)
[2019-11-22] MEDS: Melatonin 3 MG TAB PO SCH (21:14)
[2019-11-22] MEDS: Gabapentin 300 MG CAP PO SCH (21:14)
[2019-11-23] MEDS: Piperacillin/Tazobactam 2.25 GM in Sodium Chloride 0.9% 100 ML IVPB SCH ×5 (00:34→23:07)
[2019-11-23] MEDS: Acetaminophen 325 MG TAB PO PRN ×2 (05:48→13:45)
[2019-11-23] MEDS: NIFEdipine XL 30 MG TAB PO SCH (09:03)
[2019-11-23] MEDS: FLUoxetine HCl 10 MG CAP PO SCH (09:03)
[2019-11-23] MEDS: Ferrous Sulfate 325 MG TAB PO SCH (09:04)
[2019-11-23] MEDS: Cholecalciferol 1,000 UNITS (25 MCG) TAB PO SCH (09:04)
[2019-11-23] MEDS: Floranex Packet PO SCH (09:04)
[2019-11-23] MEDS: Nystatin Cream 15 GM TUBE TOP SCH ×2 (09:05→21:08)
[2019-11-23] MEDS: hydrALAZINE 25 MG TAB PO SCH ×3 (09:05→21:09)
[2019-11-23] MEDS: Cyclobenzaprine 10 MG TAB PO PRN ×2 (13:45→23:04)
[2019-11-23] MEDS: traMADol HCl 50 MG TAB PO PRN (17:06)
[2019-11-23] MEDS: Melatonin 3 MG TAB PO SCH (21:08)
[2019-11-23] MEDS: traZODone HCl 50 MG TAB PO SCH (21:08)
[2019-11-23] MEDS: Gabapentin 300 MG CAP PO SCH (21:08)
[2019-11-24] MEDS: Piperacillin/Tazobactam 2.25 GM in Sodium Chloride 0.9% 100 ML IVPB SCH ×4 (05:36→23:51)
[2019-11-24] MEDS: Acetaminophen 325 MG TAB PO PRN ×2 (05:43→11:48)
[2019-11-24] MEDS: traMADol HCl 50 MG TAB PO PRN (05:44)
[2019-11-24] MEDS: Floranex Packet PO SCH (09:35)
[2019-11-24] MEDS: Nystatin Cream 15 GM TUBE TOP SCH ×2 (09:37→20:46)
[2019-11-24] MEDS: Cholecalciferol 1,000 UNITS (25 MCG) TAB PO SCH (09:38)
[2019-11-24] MEDS: FLUoxetine HCl 10 MG CAP PO SCH (09:38)
[2019-11-24] MEDS: NIFEdipine XL 30 MG TAB PO SCH (09:39)
[2019-11-24] MEDS: hydrALAZINE 25 MG TAB PO SCH ×3 (09:40→20:43)
[2019-11-24] MEDS: Ferrous Sulfate 325 MG TAB PO SCH (09:41)
[2019-11-24] MEDS: Cyclobenzaprine 10 MG TAB PO PRN (09:41)
--- NOTE | 2019-11-24 16:44 | RAD ---
LEFT KNEE FOUR VIEWS: 11/24/19 Severe degenerative changes are present in the joint consisting of joint space narrowing, especially medially and osteophytes. There is slight medial subluxation of the femur on the tibia. A joint effus ion is present. Additionally, there are several rounded calcific densities that appear to be within t he joint, either loose bodies or perhaps synovial chondromas. Degenerative changes are also seen in t he patellofemoral joint. IMPRESSION: Severe degenerative changes, joint fluid, and loose bodies. POS: HOME
[2019-11-24] MEDS: traZODone HCl 50 MG TAB PO SCH (20:46)
[2019-11-24] MEDS: Gabapentin 300 MG CAP PO SCH (20:46)
[2019-11-24] MEDS: Melatonin 3 MG TAB PO SCH (20:46)
[2019-11-25] MEDS: Piperacillin/Tazobactam 2.25 GM in Sodium Chloride 0.9% 100 ML IVPB SCH ×3 (05:34→17:07)
[2019-11-25] MEDS: Ferrous Sulfate 325 MG TAB PO SCH (08:59)
[2019-11-25] MEDS: FLUoxetine HCl 10 MG CAP PO SCH (08:59)
[2019-11-25] MEDS: hydrALAZINE 25 MG TAB PO SCH ×3 (08:59→20:40)
[2019-11-25] MEDS: Cholecalciferol 1,000 UNITS (25 MCG) TAB PO SCH (09:02)
[2019-11-25] MEDS: Nystatin Cream 15 GM TUBE TOP SCH ×2 (09:03→20:42)
[2019-11-25] MEDS: NIFEdipine XL 30 MG TAB PO SCH (09:03)
[2019-11-25] MEDS: Floranex Packet PO SCH (09:03)
[2019-11-25] MEDS: Acetaminophen 325 MG TAB PO PRN (14:13)
[2019-11-25] MEDS: Cyclobenzaprine 10 MG TAB PO PRN (14:13)
[2019-11-25] MEDS: Melatonin 3 MG TAB PO SCH (20:40)
[2019-11-25] MEDS: Gabapentin 300 MG CAP PO SCH (20:40)
[2019-11-25] MEDS: traMADol HCl 50 MG TAB PO PRN (20:55)
[2019-11-25] MEDS: traZODone HCl 50 MG TAB PO SCH (21:27)
[2019-11-26] MEDS: Piperacillin/Tazobactam 2.25 GM in Sodium Chloride 0.9% 100 ML IVPB SCH ×5 (00:03→23:36)
[2019-11-26] MEDS: Cyclobenzaprine 10 MG TAB PO PRN ×2 (08:18→20:36)
[2019-11-26] MEDS: Acetaminophen 325 MG TAB PO PRN ×2 (08:19→20:37)
[2019-11-26] MEDS: FLUoxetine HCl 10 MG CAP PO SCH (08:19)
[2019-11-26] MEDS: Floranex Packet PO SCH (08:19)
[2019-11-26] MEDS: Cholecalciferol 1,000 UNITS (25 MCG) TAB PO SCH (08:19)
[2019-11-26] MEDS: hydrALAZINE 25 MG TAB PO SCH ×3 (08:19→20:32)
[2019-11-26] MEDS: NIFEdipine XL 30 MG TAB PO SCH (08:20)
[2019-11-26] MEDS: Nystatin Cream 15 GM TUBE TOP SCH ×2 (08:20→20:34)
[2019-11-26] MEDS: Ferrous Sulfate 325 MG TAB PO SCH (08:20)
[2019-11-26] MEDS: traMADol HCl 50 MG TAB PO PRN (12:28)
[2019-11-26] MEDS: Gabapentin 300 MG CAP PO SCH (20:33)
[2019-11-26] MEDS: Melatonin 3 MG TAB PO SCH (20:33)
[2019-11-26] MEDS: traZODone HCl 50 MG TAB PO SCH (20:33)
[2019-11-27] MEDS: Piperacillin/Tazobactam 2.25 GM in Sodium Chloride 0.9% 100 ML IVPB SCH ×4 (05:20→17:34)
[2019-11-27] MEDS: NIFEdipine XL 30 MG TAB PO SCH (08:26)
[2019-11-27] MEDS: FLUoxetine HCl 10 MG CAP PO SCH (08:27)
[2019-11-27] MEDS: Cyclobenzaprine 10 MG TAB PO PRN (08:27)
[2019-11-27] MEDS: Floranex Packet PO SCH (08:28)
[2019-11-27] MEDS: hydrALAZINE 25 MG TAB PO SCH ×3 (08:28→20:21)
[2019-11-27] MEDS: Acetaminophen 325 MG TAB PO PRN ×2 (08:29→20:20)
[2019-11-27] MEDS: Ferrous Sulfate 325 MG TAB PO SCH (08:29)
[2019-11-27] MEDS: Nystatin Cream 15 GM TUBE TOP SCH ×2 (08:30→21:30)
[2019-11-27] MEDS: Cholecalciferol 1,000 UNITS (25 MCG) TAB PO SCH (10:41)
[2019-11-27] MEDS: traMADol HCl 50 MG TAB PO PRN (18:21)
[2019-11-27] MEDS: traZODone HCl 50 MG TAB PO SCH (20:20)
[2019-11-27] MEDS: Gabapentin 300 MG CAP PO SCH (20:21)
[2019-11-27] MEDS: Melatonin 3 MG TAB PO SCH (20:21)
[2019-11-28] MEDS: Piperacillin/Tazobactam 2.25 GM in Sodium Chloride 0.9% 100 ML IVPB SCH (00:02)
[2019-11-28 04:53] LABS: Anion Gap 15 mmol/L (10-20); BUN (Urea Nitrogen) 23 mg/dL (9.8-20.1); Calc. Creatinine Clearance 25 mL/min (70-130); Carbon Dioxide 18 mmol/L (23-31); Chloride 113 mmol/L (98-107); Estimated GFR-MDRD 18; Glucose 84 mg/dL (83-110); Potassium 4.1 mmol/L (3.5-5.1); Sodium 142 mmol/L (136-145)
[2019-11-28 04:59] LABS: #Basophils 0.1 thou/uL (0.0-0.2); #Eosinphils 0.7 thou/uL (0.0-0.7); #Lymphocytes 2.3 thou/uL (1.20-3.40); #Monocytes 0.6 thou/uL (0.11-0.59); #Neutrophils 3.8 thou/uL (1.40-6.50); %Basophils 1.9 % (0.0-1.0); %Eosinophils 8.6 % (0.0-10.0); %Lymphocytes 30.5 % (21.0-51.0); %Monocytes 8.3 % (0.0-10.0); %Neutrophils 50.7 % (42.0-75.0); Hemoglobin 7.4 g/dL (12.0-16.0); Mean Corpuscular HGB CONC 31.1 g/dL (32.0-36.0); Mean Corpuscular Hemoglobin 30.9 pg (27.0-31.0); Mean Corpuscular Volume 99.6 fL (78.0-98.0); Mean Platelet Volume 5.5 fL (7.4-10.4); Platelet Count 293 thou/uL (130-400); RBC Distribution Width 13.2 % (11.5-14.5); Red Blood Cell (RBC) Count 2.38 mill/uL (4.20-5.40); White Blood Cell (WBC) Count 7.6 thou/uL (4.8-10.8)
[2019-11-28] MEDS: Floranex Packet PO SCH (08:51)
[2019-11-28] MEDS: Ferrous Sulfate 325 MG TAB PO SCH (08:51)
[2019-11-28] MEDS: hydrALAZINE 25 MG TAB PO SCH ×3 (08:51→20:41)
[2019-11-28] MEDS: FLUoxetine HCl 10 MG CAP PO SCH (08:52)
[2019-11-28] MEDS: NIFEdipine XL 30 MG TAB PO SCH (08:52)
[2019-11-28] MEDS: Cholecalciferol 1,000 UNITS (25 MCG) TAB PO SCH (08:52)
[2019-11-28] MEDS: Acetaminophen 325 MG TAB PO PRN ×2 (08:52→20:39)
[2019-11-28] MEDS: Cyclobenzaprine 10 MG TAB PO PRN ×2 (08:53→20:40)
[2019-11-28] MEDS: Nystatin Cream 15 GM TUBE TOP SCH ×2 (09:27→20:48)
[2019-11-28] MEDS ORDERED: Furosemide 20 MG/2 ML VIAL SLOW IVP SCH (10:30)
[2019-11-28] MEDS: traMADol HCl 50 MG TAB PO PRN (11:37)
[2019-11-28] MEDS ORDERED: Losartan Potassium 50 MG TAB PO SCH (12:30)
[2019-11-28 17:46] LABS: Iron 67 ug/dL (50-170); Iron Binding Capacity, Total 170 mcg/dL (265-497)
[2019-11-28 18:09] LABS: Ferritin 376.76 ng/mL (10-291)
[2019-11-28] MEDS: traZODone HCl 50 MG TAB PO SCH (20:40)
[2019-11-28] MEDS: Gabapentin 300 MG CAP PO SCH (20:40)
[2019-11-28] MEDS: Melatonin 3 MG TAB PO SCH (20:42)
[2019-11-29] MEDS: Floranex Packet PO SCH (08:50)
[2019-11-29] MEDS: Ferrous Sulfate 325 MG TAB PO SCH (08:50)
[2019-11-29] MEDS: FLUoxetine HCl 10 MG CAP PO SCH (08:50)
[2019-11-29] MEDS: traMADol HCl 50 MG TAB PO PRN (08:50)
[2019-11-29] MEDS: Losartan Potassium 50 MG TAB PO SCH (08:51)
[2019-11-29] MEDS: hydrALAZINE 25 MG TAB PO SCH ×3 (08:51→20:25)
[2019-11-29] MEDS: NIFEdipine XL 30 MG TAB PO SCH (08:51)
[2019-11-29] MEDS: Cholecalciferol 1,000 UNITS (25 MCG) TAB PO SCH (08:51)
[2019-11-29] MEDS: Nystatin Cream 15 GM TUBE TOP SCH ×2 (08:52→20:28)
[2019-11-29] MEDS: Cyclobenzaprine 10 MG TAB PO PRN ×2 (13:24→20:42)
[2019-11-29] MEDS: Acetaminophen 325 MG TAB PO PRN ×2 (13:24→20:42)
[2019-11-29] MEDS ORDERED: traMADol HCl 50 MG TAB PO SCH (17:45)
[2019-11-29] MEDS: Melatonin 3 MG TAB PO SCH (20:25)
[2019-11-29] MEDS: traZODone HCl 50 MG TAB PO SCH (20:25)
[2019-11-29] MEDS: Gabapentin 300 MG CAP PO SCH (20:25)
[2019-11-30 05:05] LABS: Anion Gap 14 mmol/L (10-20); BUN (Urea Nitrogen) 22 mg/dL (9.8-20.1); Calc. Creatinine Clearance 25 mL/min (70-130); Calcium 8.1 mg/dL (7.8-10.44); Carbon Dioxide 18 mmol/L (23-31); Chloride 114 mmol/L (98-107); Estimated GFR-MDRD 18; Glucose 83 mg/dL (83-110); Potassium 4.1 mmol/L (3.5-5.1); Sodium 142 mmol/L (136-145)
[2019-11-30 05:20] LABS: Band 2 % (5-11); Eosinophils 7 % (0-10); Hemoglobin 7.5 g/dL (12.0-16.0); Hypochromia SLIGHT = 6-15 cells (100X) (0-5/hpf); Lymphocytes 34 % (21-51); MDiff Complete? YES; Mean Corpuscular HGB CONC 30.6 g/dL (32.0-36.0); Mean Corpuscular Hemoglobin 30.4 pg (27.0-31.0); Mean Corpuscular Volume 99.3 fL (78.0-98.0); Mean Platelet Volume 5.7 fL (7.4-10.4); Monocytes 9 % (0-10); Neutrophil 47 % (42-75); Ovalocytes SLIGHT = 2-5 cells (100X) (0-1/hpf); Platelet Count 305 thou/uL (130-400); Platelet Morphology Comment Appears Adequate; RBC Distribution Width 13.3 % (11.5-14.5); Reactive Lymphocytes 1 % (0-10); Red Blood Cell (RBC) Count 2.47 mill/uL (4.20-5.40); White Blood Cell (WBC) Count 7.1 thou/uL (4.8-10.8)
[2019-11-30] MEDS: traMADol HCl 50 MG TAB PO PRN (08:17)
[2019-11-30] MEDS: Acetaminophen 325 MG TAB PO PRN ×2 (08:17→20:17)
[2019-11-30] MEDS: Cholecalciferol 1,000 UNITS (25 MCG) TAB PO SCH (08:21)
[2019-11-30] MEDS: FLUoxetine HCl 10 MG CAP PO SCH (08:22)
[2019-11-30] MEDS: NIFEdipine XL 30 MG TAB PO SCH (08:23)
[2019-11-30] MEDS: Floranex Packet PO SCH (08:24)
[2019-11-30] MEDS: Losartan Potassium 50 MG TAB PO SCH (08:24)
[2019-11-30] MEDS: Ferrous Sulfate 325 MG TAB PO SCH (08:24)
[2019-11-30] MEDS: hydrALAZINE 25 MG TAB PO SCH ×3 (08:25→20:18)
[2019-11-30] MEDS: Nystatin Cream 15 GM TUBE TOP SCH ×2 (08:27→20:24)
[2019-11-30] MEDS: Cyclobenzaprine 10 MG TAB PO PRN (16:41)
[2019-11-30] MEDS ORDERED: Furosemide 40 MG/4 ML VIAL SLOW IVP SCH (17:30)
[2019-11-30] MEDS ORDERED: Dextrose 5% in Water 1,000 ML IV PRN (17:43)
[2019-11-30] MEDS ORDERED: Dextrose 50% Abboject 50 ML SYRINGE IVP PRN (17:43)
[2019-11-30] MEDS ORDERED: HumaLOG 300 UNITS/3 ML VIAL SC PRN (17:43)
[2019-11-30] MEDS: traZODone HCl 50 MG TAB PO SCH (20:18)
[2019-11-30] MEDS: Gabapentin 300 MG CAP PO SCH (20:18)
[2019-11-30] MEDS: Melatonin 3 MG TAB PO SCH (20:18)
[2019-12-01] MEDS: Cyclobenzaprine 10 MG TAB PO PRN (08:03)
[2019-12-01] MEDS: Acetaminophen 325 MG TAB PO PRN ×2 (08:04→20:26)
[2019-12-01] MEDS: hydrALAZINE 25 MG TAB PO SCH ×3 (08:05→20:28)
[2019-12-01] MEDS: Ferrous Sulfate 325 MG TAB PO SCH (08:05)
[2019-12-01] MEDS: Losartan Potassium 50 MG TAB PO SCH (08:05)
[2019-12-01] MEDS: FLUoxetine HCl 10 MG CAP PO SCH (08:06)
[2019-12-01] MEDS: Cholecalciferol 1,000 UNITS (25 MCG) TAB PO SCH (08:06)
[2019-12-01] MEDS: Folic Acid 1 MG TAB PO SCH (08:07)
[2019-12-01] MEDS: Carvedilol 3.125 MG TAB PO SCH ×2 (08:08→17:01)
[2019-12-01] MEDS: NIFEdipine XL 30 MG TAB PO SCH (08:08)
[2019-12-01] MEDS: Floranex Packet PO SCH (08:09)
[2019-12-01] MEDS: Nystatin Cream 15 GM TUBE TOP SCH ×2 (08:16→20:26)
[2019-12-01] MEDS: traZODone HCl 50 MG TAB PO SCH (20:25)
[2019-12-01] MEDS: Gabapentin 300 MG CAP PO SCH (20:25)
[2019-12-01] MEDS: Melatonin 3 MG TAB PO SCH (20:29)
[2019-12-02] MEDS: Cyclobenzaprine 10 MG TAB PO PRN ×2 (04:03→20:14)
[2019-12-02] MEDS: Acetaminophen 325 MG TAB PO PRN ×2 (04:03→20:14)
[2019-12-02] MEDS: FLUoxetine HCl 10 MG CAP PO SCH (08:30)
[2019-12-02] MEDS: Floranex Packet PO SCH (08:30)
[2019-12-02] MEDS: Cholecalciferol 1,000 UNITS (25 MCG) TAB PO SCH (08:31)
[2019-12-02] MEDS: Folic Acid 1 MG TAB PO SCH (08:32)
[2019-12-02] MEDS: Ferrous Sulfate 325 MG TAB PO SCH (08:32)
[2019-12-02] MEDS: Nystatin Cream 15 GM TUBE TOP SCH ×2 (08:32→20:15)
[2019-12-02] MEDS: hydrALAZINE 25 MG TAB PO SCH ×3 (08:33→20:14)
[2019-12-02] MEDS: Carvedilol 3.125 MG TAB PO SCH ×2 (08:33→17:26)
[2019-12-02] MEDS: Losartan Potassium 50 MG TAB PO SCH (08:33)
[2019-12-02] MEDS: NIFEdipine XL 30 MG TAB PO SCH (08:39)
[2019-12-02] MEDS: traZODone HCl 50 MG TAB PO SCH (20:15)
[2019-12-02] MEDS: Melatonin 3 MG TAB PO SCH (20:15)
[2019-12-02] MEDS: Gabapentin 300 MG CAP PO SCH (20:15)
[2019-12-03] MEDS: Nystatin Cream 15 GM TUBE TOP SCH ×2 (06:00→09:22)
[2019-12-03] MEDS: Acetaminophen 325 MG TAB PO PRN (09:14)
[2019-12-03] MEDS: hydrALAZINE 25 MG TAB PO SCH ×3 (09:15→20:38)
[2019-12-03] MEDS: FLUoxetine HCl 10 MG CAP PO SCH (09:15)
[2019-12-03] MEDS: Cholecalciferol 1,000 UNITS (25 MCG) TAB PO SCH (09:16)
[2019-12-03] MEDS: Ferrous Sulfate 325 MG TAB PO SCH (09:16)
[2019-12-03] MEDS: Losartan Potassium 50 MG TAB PO SCH (09:16)
[2019-12-03] MEDS: NIFEdipine XL 30 MG TAB PO SCH (09:17)
[2019-12-03] MEDS: Carvedilol 3.125 MG TAB PO SCH ×2 (09:17→17:17)
[2019-12-03] MEDS: Floranex Packet PO SCH (09:18)
[2019-12-03] MEDS: Folic Acid 1 MG TAB PO SCH (09:20)
[2019-12-03] MEDS: Cyclobenzaprine 10 MG TAB PO PRN (13:56)
[2019-12-03] MEDS: traMADol HCl 50 MG TAB PO PRN (17:20)
[2019-12-03] MEDS: Melatonin 3 MG TAB PO SCH (20:38)
[2019-12-03] MEDS: traZODone HCl 50 MG TAB PO SCH (20:38)
[2019-12-03] MEDS: Gabapentin 300 MG CAP PO SCH (20:38)
[2019-12-04 05:28] LABS: Anion Gap 16 mmol/L (10-20); BUN (Urea Nitrogen) 32 mg/dL (9.8-20.1); Calc. Creatinine Clearance 24 mL/min (70-130); Calcium 8.1 mg/dL (7.8-10.44); Carbon Dioxide 20 mmol/L (23-31); Chloride 110 mmol/L (98-107); Estimated GFR-MDRD 17; Glucose 83 mg/dL (83-110); Potassium 4.8 mmol/L (3.5-5.1); Sodium 141 mmol/L (136-145)
[2019-12-04] MEDS: Floranex Packet PO SCH (08:50)
[2019-12-04] MEDS: Ferrous Sulfate 325 MG TAB PO SCH (08:50)
[2019-12-04] MEDS: hydrALAZINE 25 MG TAB PO SCH ×3 (08:51→20:21)
[2019-12-04] MEDS: NIFEdipine XL 30 MG TAB PO SCH (08:51)
[2019-12-04] MEDS: FLUoxetine HCl 10 MG CAP PO SCH (08:51)
[2019-12-04] MEDS: Cholecalciferol 1,000 UNITS (25 MCG) TAB PO SCH (08:52)
[2019-12-04] MEDS: Acetaminophen 325 MG TAB PO PRN ×2 (08:52→20:21)
[2019-12-04] MEDS: Losartan Potassium 50 MG TAB PO SCH (08:52)
[2019-12-04] MEDS: Carvedilol 3.125 MG TAB PO SCH ×2 (08:52→17:35)
[2019-12-04] MEDS: Folic Acid 1 MG TAB PO SCH (08:52)
[2019-12-04] MEDS: Nystatin Cream 15 GM TUBE TOP SCH ×2 (09:30→20:35)
[2019-12-04 12:26] LABS: #Eosinphils 0.5 thou/uL (0.0-0.7); #Lymphocytes 2.1 thou/uL (1.20-3.40); #Monocytes 0.8 thou/uL (0.11-0.59); #Neutrophils 4.7 thou/uL (1.40-6.50); %Basophils 0.5 % (0.0-1.0); %Eosinophils 6.6 % (0.0-10.0); %Lymphocytes 25.4 % (21.0-51.0); %Monocytes 9.7 % (0.0-10.0); %Neutrophils 57.8 % (42.0-75.0); Hemoglobin 7.8 g/dL (12.0-16.0); Mean Corpuscular HGB CONC 32.1 g/dL (32.0-36.0); Mean Corpuscular Hemoglobin 31.4 pg (27.0-31.0); Mean Corpuscular Volume 97.8 fL (78.0-98.0); Mean Platelet Volume 7.1 fL (7.4-10.4); Platelet Count 320 thou/uL (130-400); RBC Distribution Width 12.8 % (11.5-14.5); White Blood Cell (WBC) Count 8.1 thou/uL (4.8-10.8)
[2019-12-04] MEDS: Gabapentin 300 MG CAP PO SCH (20:20)
[2019-12-04] MEDS: Cyclobenzaprine 10 MG TAB PO PRN (20:21)
[2019-12-04] MEDS: Melatonin 3 MG TAB PO SCH (20:21)
[2019-12-04] MEDS: traZODone HCl 50 MG TAB PO SCH (20:21)
[2019-12-05] MEDS ORDERED: Furosemide 40 MG TAB PO SCH ×2 (07:30→19:00)
[2019-12-05] MEDS: hydrALAZINE 25 MG TAB PO SCH ×3 (08:11→20:46)
[2019-12-05] MEDS: NIFEdipine XL 30 MG TAB PO SCH (08:11)
[2019-12-05] MEDS: Floranex Packet PO SCH (08:11)
[2019-12-05] MEDS: Cholecalciferol 1,000 UNITS (25 MCG) TAB PO SCH (08:12)
[2019-12-05] MEDS: FLUoxetine HCl 10 MG CAP PO SCH (08:12)
[2019-12-05] MEDS: Ferrous Sulfate 325 MG TAB PO SCH (08:13)
[2019-12-05] MEDS: Acetaminophen 325 MG TAB PO PRN ×2 (08:13→20:48)
[2019-12-05] MEDS: Carvedilol 3.125 MG TAB PO SCH ×2 (08:13→17:13)
[2019-12-05] MEDS: Folic Acid 1 MG TAB PO SCH (08:13)
[2019-12-05] MEDS: Nystatin Cream 15 GM TUBE TOP SCH ×2 (08:14→20:56)
[2019-12-05] MEDS: Losartan Potassium 50 MG TAB PO SCH (09:35)
[2019-12-05] MEDS: Cyclobenzaprine 10 MG TAB PO PRN (20:47)
[2019-12-05] MEDS: traZODone HCl 50 MG TAB PO SCH (20:47)
[2019-12-05] MEDS: Melatonin 3 MG TAB PO SCH (20:48)
[2019-12-05] MEDS: Gabapentin 300 MG CAP PO SCH (20:48)
[2019-12-05] MEDS ORDERED: Furosemide 20 MG TAB PO SCH (21:00)
[2019-12-06] MEDS ORDERED: Furosemide 40 MG TAB PO SCH (07:30)
[2019-12-06] MEDS: FLUoxetine HCl 10 MG CAP PO SCH (08:59)
[2019-12-06] MEDS: hydrALAZINE 25 MG TAB PO SCH ×3 (09:00→21:15)
[2019-12-06] MEDS: NIFEdipine XL 30 MG TAB PO SCH (09:00)
[2019-12-06] MEDS: Carvedilol 3.125 MG TAB PO SCH ×2 (09:01→15:54)
[2019-12-06] MEDS: Cholecalciferol 1,000 UNITS (25 MCG) TAB PO SCH (09:01)
[2019-12-06] MEDS: Folic Acid 1 MG TAB PO SCH (09:02)
[2019-12-06] MEDS: Ferrous Sulfate 325 MG TAB PO SCH (09:02)
[2019-12-06] MEDS: Furosemide 20 MG TAB PO SCH (09:02)
[2019-12-06] MEDS: Losartan Potassium 50 MG TAB PO SCH (09:02)
[2019-12-06] MEDS: Floranex Packet PO SCH (09:03)
[2019-12-06] MEDS: Nystatin Cream 15 GM TUBE TOP SCH ×2 (10:28→20:00)
[2019-12-06] MEDS: Acetaminophen 325 MG TAB PO PRN ×2 (13:24→21:14)
[2019-12-06] MEDS: Melatonin 3 MG TAB PO SCH (21:14)
[2019-12-06] MEDS: Cyclobenzaprine 10 MG TAB PO PRN (21:14)
[2019-12-06] MEDS: Gabapentin 300 MG CAP PO SCH (21:14)
[2019-12-06] MEDS: traZODone HCl 50 MG TAB PO SCH (21:15)
[2019-12-07 05:48] LABS: Anion Gap 15 mmol/L (10-20); BUN (Urea Nitrogen) 41 mg/dL (9.8-20.1); Calc. Creatinine Clearance 23 mL/min (70-130); Calcium 8.1 mg/dL (7.8-10.44); Carbon Dioxide 20 mmol/L (23-31); Chloride 111 mmol/L (98-107); Estimated GFR-MDRD 17; Glucose 85 mg/dL (83-110); Potassium 4.9 mmol/L (3.5-5.1); Sodium 141 mmol/L (136-145)
[2019-12-07] MEDS: traMADol HCl 50 MG TAB PO PRN (08:52)
[2019-12-07] MEDS: FLUoxetine HCl 10 MG CAP PO SCH (08:54)
[2019-12-07] MEDS: Ferrous Sulfate 325 MG TAB PO SCH (08:54)
[2019-12-07] MEDS: Floranex Packet PO SCH (08:55)
[2019-12-07] MEDS: NIFEdipine XL 30 MG TAB PO SCH (08:55)
[2019-12-07] MEDS: Carvedilol 3.125 MG TAB PO SCH ×2 (08:55→18:05)
[2019-12-07] MEDS: Folic Acid 1 MG TAB PO SCH (08:56)
[2019-12-07] MEDS: Losartan Potassium 50 MG TAB PO SCH (08:56)
[2019-12-07] MEDS: hydrALAZINE 25 MG TAB PO SCH ×3 (08:56→20:22)
[2019-12-07] MEDS: Cholecalciferol 1,000 UNITS (25 MCG) TAB PO SCH (08:56)
[2019-12-07] MEDS: Furosemide 20 MG TAB PO SCH (08:58)
[2019-12-07] MEDS: Nystatin Cream 15 GM TUBE TOP SCH ×2 (09:06→20:25)
[2019-12-07] MEDS: Acetaminophen 325 MG TAB PO PRN (18:05)
[2019-12-07] MEDS: traZODone HCl 50 MG TAB PO SCH (20:22)
[2019-12-07] MEDS: Gabapentin 300 MG CAP PO SCH (20:22)
[2019-12-07] MEDS: Melatonin 3 MG TAB PO SCH (20:22)
[2019-12-08] MEDS: Acetaminophen 325 MG TAB PO PRN ×3 (05:53→20:32)
[2019-12-08] MEDS: Floranex Packet PO SCH (08:28)
[2019-12-08] MEDS: Furosemide 20 MG TAB PO SCH (08:29)
[2019-12-08] MEDS: Cholecalciferol 1,000 UNITS (25 MCG) TAB PO SCH (08:32)
[2019-12-08] MEDS: Ferrous Sulfate 325 MG TAB PO SCH (08:32)
[2019-12-08] MEDS: FLUoxetine HCl 10 MG CAP PO SCH (08:32)
[2019-12-08] MEDS: Carvedilol 3.125 MG TAB PO SCH ×2 (08:33→17:25)
[2019-12-08] MEDS: NIFEdipine XL 30 MG TAB PO SCH (08:33)
[2019-12-08] MEDS: Folic Acid 1 MG TAB PO SCH (08:35)
[2019-12-08] MEDS: hydrALAZINE 25 MG TAB PO SCH ×3 (08:35→20:27)
[2019-12-08] MEDS: Losartan Potassium 50 MG TAB PO SCH (08:35)
[2019-12-08] MEDS: Nystatin Cream 15 GM TUBE TOP SCH ×2 (08:45→22:04)
[2019-12-08] MEDS: Milk Of Magnesia 30 ML UDCUP PO PRN (09:19)
[2019-12-08] MEDS: Cyclobenzaprine 10 MG TAB PO PRN ×2 (12:56→20:31)
[2019-12-08] MEDS: traZODone HCl 50 MG TAB PO SCH (20:27)
[2019-12-08] MEDS: Melatonin 3 MG TAB PO SCH (20:27)
[2019-12-08] MEDS: Gabapentin 300 MG CAP PO SCH (20:27)
[2019-12-09] MEDS: Cholecalciferol 1,000 UNITS (25 MCG) TAB PO SCH (08:52)
[2019-12-09] MEDS: Floranex Packet PO SCH (08:52)
[2019-12-09] MEDS: NIFEdipine XL 30 MG TAB PO SCH (08:53)
[2019-12-09] MEDS: Ferrous Sulfate 325 MG TAB PO SCH (08:53)
[2019-12-09] MEDS: FLUoxetine HCl 10 MG CAP PO SCH (08:53)
[2019-12-09] MEDS: Carvedilol 6.25 MG TAB PO SCH ×2 (08:54→18:06)
[2019-12-09] MEDS: Folic Acid 1 MG TAB PO SCH (08:54)
[2019-12-09] MEDS: Losartan Potassium 50 MG TAB PO SCH (08:54)
[2019-12-09] MEDS: hydrALAZINE 25 MG TAB PO SCH ×3 (08:54→21:26)
[2019-12-09] MEDS: Furosemide 20 MG TAB PO SCH (08:54)
[2019-12-09] MEDS: Acetaminophen 325 MG TAB PO PRN (08:55)
[2019-12-09] MEDS: Nystatin Cream 15 GM TUBE TOP SCH ×2 (09:20→21:25)
[2019-12-09] MEDS: Gabapentin 300 MG CAP PO SCH (21:25)
[2019-12-09] MEDS: Melatonin 3 MG TAB PO SCH (21:25)
[2019-12-09] MEDS: traZODone HCl 50 MG TAB PO SCH (21:26)
[2019-12-10] MEDS: Carvedilol 6.25 MG TAB PO SCH ×2 (09:07→17:49)
[2019-12-10] MEDS: Floranex Packet PO SCH (09:07)
[2019-12-10] MEDS: Losartan Potassium 50 MG TAB PO SCH (09:07)
[2019-12-10] MEDS: Cholecalciferol 1,000 UNITS (25 MCG) TAB PO SCH (09:07)
[2019-12-10] MEDS: Ferrous Sulfate 325 MG TAB PO SCH (09:07)
[2019-12-10] MEDS: Folic Acid 1 MG TAB PO SCH (09:08)
[2019-12-10] MEDS: FLUoxetine HCl 10 MG CAP PO SCH (09:08)
[2019-12-10] MEDS: hydrALAZINE 25 MG TAB PO SCH ×3 (09:08→20:03)
[2019-12-10] MEDS: Acetaminophen 325 MG TAB PO PRN ×2 (09:09→20:03)
[2019-12-10] MEDS: Furosemide 20 MG TAB PO SCH (09:09)
[2019-12-10] MEDS: NIFEdipine XL 30 MG TAB PO SCH (09:09)
[2019-12-10] MEDS: Nystatin Cream 15 GM TUBE TOP SCH ×2 (09:10→20:04)
[2019-12-10] MEDS: traZODone HCl 50 MG TAB PO SCH (20:02)
[2019-12-10] MEDS: Gabapentin 300 MG CAP PO SCH (20:02)
[2019-12-10] MEDS: Melatonin 3 MG TAB PO SCH (20:03)
[2019-12-10] MEDS: Cyclobenzaprine 10 MG TAB PO PRN (20:03)
[2019-12-11 05:31] LABS: #Basophils 0.1 thou/uL (0.0-0.2); #Eosinphils 0.6 thou/uL (0.0-0.7); #Lymphocytes 2.3 thou/uL (1.20-3.40); #Monocytes 0.8 thou/uL (0.11-0.59); #Neutrophils 2.3 thou/uL (1.40-6.50); %Basophils 1.7 % (0.0-1.0); %Eosinophils 9.2 % (0.0-10.0); %Lymphocytes 38.2 % (21.0-51.0); %Neutrophils 37.9 % (42.0-75.0); Hemoglobin 7.5 g/dL (12.0-16.0); Mean Corpuscular HGB CONC 29.6 g/dL (32.0-36.0); Mean Corpuscular Hemoglobin 30.6 pg (27.0-31.0); Mean Platelet Volume 6.4 fL (7.4-10.4); Platelet Count 267 thou/uL (130-400); RBC Distribution Width 14.2 % (11.5-14.5); Red Blood Cell (RBC) Count 2.46 mill/uL (4.20-5.40)
[2019-12-11 05:42] LABS: Anion Gap 16 mmol/L (10-20); BUN (Urea Nitrogen) 44 mg/dL (9.8-20.1); Calc. Creatinine Clearance 22 mL/min (70-130); Calcium 8.2 mg/dL (7.8-10.44); Carbon Dioxide 20 mmol/L (23-31); Chloride 108 mmol/L (98-107); Estimated GFR-MDRD 16; Glucose 91 mg/dL (83-110); Potassium 5.1 mmol/L (3.5-5.1); Sodium 139 mmol/L (136-145)
[2019-12-11] MEDS: Acetaminophen 325 MG TAB PO PRN ×2 (08:38→20:08)
[2019-12-11] MEDS: Losartan Potassium 50 MG TAB PO SCH (08:39)
[2019-12-11] MEDS: hydrALAZINE 25 MG TAB PO SCH ×3 (08:39→20:08)
[2019-12-11] MEDS: FLUoxetine HCl 10 MG CAP PO SCH (08:40)
[2019-12-11] MEDS: Ferrous Sulfate 325 MG TAB PO SCH (08:41)
[2019-12-11] MEDS: Folic Acid 1 MG TAB PO SCH (08:41)
[2019-12-11] MEDS: Cholecalciferol 1,000 UNITS (25 MCG) TAB PO SCH (08:42)
[2019-12-11] MEDS: Carvedilol 6.25 MG TAB PO SCH ×2 (08:43→17:49)
[2019-12-11] MEDS: NIFEdipine XL 30 MG TAB PO SCH (08:44)
[2019-12-11] MEDS: Floranex Packet PO SCH (08:45)
[2019-12-11] MEDS: Furosemide 20 MG TAB PO SCH (08:45)
[2019-12-11] MEDS: Nystatin Cream 15 GM TUBE TOP SCH ×2 (08:48→20:08)
[2019-12-11] MEDS: Cyclobenzaprine 10 MG TAB PO PRN (20:07)
[2019-12-11] MEDS: traZODone HCl 50 MG TAB PO SCH (20:08)
[2019-12-11] MEDS: Gabapentin 300 MG CAP PO SCH (20:08)
[2019-12-11] MEDS: Melatonin 3 MG TAB PO SCH (20:08)
[2019-12-11] MEDS: traMADol HCl 50 MG TAB PO PRN (22:14)
[2019-12-12] MEDS: Floranex Packet PO SCH (08:39)
[2019-12-12] MEDS: FLUoxetine HCl 10 MG CAP PO SCH (08:39)
[2019-12-12] MEDS: Cholecalciferol 1,000 UNITS (25 MCG) TAB PO SCH (08:40)
[2019-12-12] MEDS: Losartan Potassium 50 MG TAB PO SCH (08:40)
[2019-12-12] MEDS: NIFEdipine XL 30 MG TAB PO SCH (08:41)
[2019-12-12] MEDS: Furosemide 20 MG TAB PO SCH (08:41)
[2019-12-12] MEDS: Folic Acid 1 MG TAB PO SCH (08:41)
[2019-12-12] MEDS: hydrALAZINE 25 MG TAB PO SCH ×3 (08:41→20:09)
[2019-12-12] MEDS: Carvedilol 6.25 MG TAB PO SCH ×2 (08:42→16:54)
[2019-12-12] MEDS: Nystatin Cream 15 GM TUBE TOP SCH ×2 (08:42→20:15)
[2019-12-12] MEDS: Acetaminophen 325 MG TAB PO PRN ×2 (08:42→20:12)
[2019-12-12] MEDS: Ferrous Sulfate 325 MG TAB PO SCH (08:42)
[2019-12-12] MEDS: traMADol HCl 50 MG TAB PO PRN (09:24)
[2019-12-12] MEDS: Milk Of Magnesia 30 ML UDCUP PO PRN (09:25)
[2019-12-12] MEDS: Gabapentin 300 MG CAP PO SCH (20:09)
[2019-12-12] MEDS: traZODone HCl 50 MG TAB PO SCH (20:10)
[2019-12-12] MEDS: Cyclobenzaprine 10 MG TAB PO PRN (20:12)
[2019-12-12] MEDS: Melatonin 3 MG TAB PO SCH (20:14)
[2019-12-13] MEDS: traMADol HCl 50 MG TAB PO PRN (08:15)
[2019-12-13] MEDS: Furosemide 20 MG TAB PO SCH (08:19)
[2019-12-13] MEDS: Carvedilol 6.25 MG TAB PO SCH ×2 (08:20→16:54)
[2019-12-13] MEDS: NIFEdipine XL 30 MG TAB PO SCH (08:21)
[2019-12-13] MEDS: Losartan Potassium 50 MG TAB PO SCH (08:21)
[2019-12-13] MEDS: Folic Acid 1 MG TAB PO SCH (08:21)
[2019-12-13] MEDS: Ferrous Sulfate 325 MG TAB PO SCH (08:24)
[2019-12-13] MEDS: FLUoxetine HCl 10 MG CAP PO SCH (08:25)
[2019-12-13] MEDS: hydrALAZINE 25 MG TAB PO SCH ×3 (08:25→20:12)
[2019-12-13] MEDS: Cholecalciferol 1,000 UNITS (25 MCG) TAB PO SCH (08:26)
[2019-12-13] MEDS: Floranex Packet PO SCH (08:29)
[2019-12-13] MEDS: Milk Of Magnesia 30 ML UDCUP PO PRN (08:35)
[2019-12-13] MEDS: Nystatin Cream 15 GM TUBE TOP SCH ×2 (08:35→20:18)
[2019-12-13] MEDS: Acetaminophen 325 MG TAB PO PRN (20:12)
[2019-12-13] MEDS: Cyclobenzaprine 10 MG TAB PO PRN (20:14)
[2019-12-13] MEDS: traZODone HCl 50 MG TAB PO SCH (20:15)
[2019-12-13] MEDS: Gabapentin 300 MG CAP PO SCH (20:15)
[2019-12-13] MEDS: Melatonin 3 MG TAB PO SCH (20:15)
[2019-12-14] MEDS: hydrALAZINE 25 MG TAB PO SCH ×3 (05:51→20:16)
[2019-12-14] MEDS: Cyclobenzaprine 10 MG TAB PO PRN (08:28)
[2019-12-14] MEDS: Acetaminophen 325 MG TAB PO PRN (08:28)
[2019-12-14] MEDS: Cholecalciferol 1,000 UNITS (25 MCG) TAB PO SCH (08:29)
[2019-12-14] MEDS: Carvedilol 6.25 MG TAB PO SCH ×2 (08:30→16:50)
[2019-12-14] MEDS: FLUoxetine HCl 10 MG CAP PO SCH (08:30)
[2019-12-14] MEDS: Floranex Packet PO SCH (08:30)
[2019-12-14] MEDS: Folic Acid 1 MG TAB PO SCH (08:30)
[2019-12-14] MEDS: NIFEdipine XL 30 MG TAB PO SCH (08:31)
[2019-12-14] MEDS: Losartan Potassium 50 MG TAB PO SCH (08:31)
[2019-12-14] MEDS: Furosemide 20 MG TAB PO SCH (08:31)
[2019-12-14] MEDS: Ferrous Sulfate 325 MG TAB PO SCH (08:31)
[2019-12-14] MEDS: Nystatin Cream 15 GM TUBE TOP SCH ×2 (08:52→20:21)
[2019-12-14] MEDS: traMADol HCl 50 MG TAB PO PRN (20:13)
[2019-12-14] MEDS: traZODone HCl 50 MG TAB PO SCH (20:13)
[2019-12-14] MEDS: Melatonin 3 MG TAB PO SCH (20:13)
[2019-12-14] MEDS: Gabapentin 300 MG CAP PO SCH (20:13)
[2019-12-15 05:11] LABS: #Basophils 0.1 thou/uL (0.0-0.2); #Eosinphils 0.5 thou/uL (0.0-0.7); #Lymphocytes 2.2 thou/uL (1.20-3.40); #Monocytes 0.7 thou/uL (0.11-0.59); #Neutrophils 2.6 thou/uL (1.40-6.50); %Basophils 2.1 % (0.0-1.0); %Eosinophils 7.5 % (0.0-10.0); %Lymphocytes 36.4 % (21.0-51.0); %Monocytes 11.2 % (0.0-10.0); %Neutrophils 42.8 % (42.0-75.0); Mean Corpuscular HGB CONC 29.4 g/dL (32.0-36.0); Mean Corpuscular Hemoglobin 29.9 pg (27.0-31.0); Mean Platelet Volume 5.7 fL (7.4-10.4); Platelet Count 259 thou/uL (130-400); RBC Distribution Width 13.8 % (11.5-14.5); Red Blood Cell (RBC) Count 2.67 mill/uL (4.20-5.40); White Blood Cell (WBC) Count 6.1 thou/uL (4.8-10.8)
[2019-12-15 05:21] LABS: Anion Gap 15 mmol/L (10-20); BUN (Urea Nitrogen) 44 mg/dL (9.8-20.1); Calc. Creatinine Clearance 24 mL/min (70-130); Calcium 8.3 mg/dL (7.8-10.44); Carbon Dioxide 21 mmol/L (23-31); Chloride 108 mmol/L (98-107); Estimated GFR-MDRD 17; Glucose 89 mg/dL (83-110); Potassium 6.2 mmol/L (3.5-5.1); Sodium 138 mmol/L (136-145)
[2019-12-15] MEDS: hydrALAZINE 25 MG TAB PO SCH ×3 (08:24→20:20)
[2019-12-15] MEDS: Folic Acid 1 MG TAB PO SCH (08:25)
[2019-12-15] MEDS: Floranex Packet PO SCH (08:25)
[2019-12-15] MEDS: Losartan Potassium 50 MG TAB PO SCH (08:25)
[2019-12-15] MEDS: FLUoxetine HCl 10 MG CAP PO SCH (08:25)
[2019-12-15] MEDS: Cholecalciferol 1,000 UNITS (25 MCG) TAB PO SCH (08:26)
[2019-12-15] MEDS: NIFEdipine XL 30 MG TAB PO SCH (08:27)
[2019-12-15] MEDS: Ferrous Sulfate 325 MG TAB PO SCH (08:27)
[2019-12-15] MEDS: Carvedilol 6.25 MG TAB PO SCH ×2 (08:27→17:15)
[2019-12-15] MEDS: Cyclobenzaprine 10 MG TAB PO PRN (08:44)
[2019-12-15] MEDS: Acetaminophen 325 MG TAB PO PRN (08:45)
[2019-12-15] MEDS: Nystatin Cream 15 GM TUBE TOP SCH ×2 (08:46→20:23)
[2019-12-15] MEDS: traMADol HCl 50 MG TAB PO PRN (20:20)
[2019-12-15] MEDS: Melatonin 3 MG TAB PO SCH (20:20)
[2019-12-15] MEDS: traZODone HCl 50 MG TAB PO SCH (20:20)
[2019-12-15] MEDS: Gabapentin 300 MG CAP PO SCH (20:20)
[2019-12-16] MEDS: Losartan Potassium 50 MG TAB PO SCH (08:36)
[2019-12-16] MEDS: Floranex Packet PO SCH (08:36)
[2019-12-16] MEDS: Furosemide 20 MG TAB PO SCH (08:39)
[2019-12-16] MEDS: Cholecalciferol 1,000 UNITS (25 MCG) TAB PO SCH (08:39)
[2019-12-16] MEDS: FLUoxetine HCl 10 MG CAP PO SCH (08:39)
[2019-12-16] MEDS: Ferrous Sulfate 325 MG TAB PO SCH (08:40)
[2019-12-16] MEDS: Folic Acid 1 MG TAB PO SCH (08:40)
[2019-12-16] MEDS: Acetaminophen 325 MG TAB PO PRN ×2 (08:47→17:38)
[2019-12-16] MEDS: Cyclobenzaprine 10 MG TAB PO PRN (08:48)
[2019-12-16] MEDS: hydrALAZINE 25 MG TAB PO SCH ×3 (08:50→20:31)
[2019-12-16] MEDS: Carvedilol 6.25 MG TAB PO SCH ×2 (08:52→17:38)
[2019-12-16] MEDS: NIFEdipine XL 30 MG TAB PO SCH (08:52)
[2019-12-16] MEDS: Nystatin Cream 15 GM TUBE TOP SCH ×2 (08:56→22:16)
[2019-12-16] MEDS: traMADol HCl 50 MG TAB PO PRN (20:30)
[2019-12-16] MEDS: Melatonin 3 MG TAB PO SCH (20:31)
[2019-12-16] MEDS: traZODone HCl 50 MG TAB PO SCH (20:31)
[2019-12-16] MEDS: Gabapentin 300 MG CAP PO SCH (20:31)
[2019-12-17] MEDS: FLUoxetine HCl 10 MG CAP PO SCH (09:23)
[2019-12-17] MEDS: hydrALAZINE 25 MG TAB PO SCH ×3 (09:23→20:15)
[2019-12-17] MEDS: Losartan Potassium 50 MG TAB PO SCH (09:24)
[2019-12-17] MEDS: Folic Acid 1 MG TAB PO SCH (09:24)
[2019-12-17] MEDS: NIFEdipine XL 30 MG TAB PO SCH (09:25)
[2019-12-17] MEDS: Ferrous Sulfate 325 MG TAB PO SCH (09:25)
[2019-12-17] MEDS: Furosemide 20 MG TAB PO SCH (09:25)
[2019-12-17] MEDS: Carvedilol 6.25 MG TAB PO SCH ×2 (09:25→17:27)
[2019-12-17] MEDS: Floranex Packet PO SCH (09:26)
[2019-12-17] MEDS: Cholecalciferol 1,000 UNITS (25 MCG) TAB PO SCH (09:26)
[2019-12-17] MEDS: Nystatin Cream 15 GM TUBE TOP SCH ×2 (09:31→20:16)
[2019-12-17] MEDS: traMADol HCl 50 MG TAB PO PRN (17:27)
[2019-12-17] MEDS: Melatonin 3 MG TAB PO SCH (20:15)
[2019-12-17] MEDS: Gabapentin 300 MG CAP PO SCH (20:15)
[2019-12-17] MEDS: traZODone HCl 50 MG TAB PO SCH (20:15)
[2019-12-18 05:13] LABS: Anion Gap 13 mmol/L (10-20); BUN (Urea Nitrogen) 43 mg/dL (9.8-20.1); Calc. Creatinine Clearance 21 mL/min (70-130); Carbon Dioxide 23 mmol/L (23-31); Chloride 108 mmol/L (98-107); Estimated GFR-MDRD 15; Glucose 87 mg/dL (83-110); Potassium 5.1 mmol/L (3.5-5.1); Sodium 139 mmol/L (136-145)
[2019-12-18] MEDS: Acetaminophen 325 MG TAB PO PRN ×3 (06:29→20:58)
[2019-12-18] MEDS: Nystatin Cream 15 GM TUBE TOP SCH ×2 (08:29→21:00)
[2019-12-18] MEDS: Furosemide 20 MG TAB PO SCH (08:30)
[2019-12-18] MEDS: Cholecalciferol 1,000 UNITS (25 MCG) TAB PO SCH (08:30)
[2019-12-18] MEDS: FLUoxetine HCl 10 MG CAP PO SCH (08:30)
[2019-12-18] MEDS: Folic Acid 1 MG TAB PO SCH (08:31)
[2019-12-18] MEDS: Carvedilol 6.25 MG TAB PO SCH ×2 (08:31→17:50)
[2019-12-18] MEDS: NIFEdipine XL 30 MG TAB PO SCH (08:33)
[2019-12-18] MEDS: hydrALAZINE 25 MG TAB PO SCH ×3 (08:34→20:59)
[2019-12-18] MEDS: Losartan Potassium 50 MG TAB PO SCH (08:34)
[2019-12-18] MEDS: Ferrous Sulfate 325 MG TAB PO SCH (08:34)
[2019-12-18] MEDS: Floranex Packet PO SCH (08:35)
[2019-12-18] MEDS: Cyclobenzaprine 10 MG TAB PO PRN ×2 (15:02→20:58)
[2019-12-18] MEDS: Gabapentin 300 MG CAP PO SCH (20:58)
[2019-12-18] MEDS: Melatonin 3 MG TAB PO SCH (20:59)
[2019-12-18] MEDS: traZODone HCl 50 MG TAB PO SCH (21:00)
[2019-12-19] MEDS: Furosemide 20 MG TAB PO SCH (08:29)
[2019-12-19 08:32] LABS: Bilirubin Negative (Negative); Blood, Urine Negative (Negative); Clarity Cloudy (Clear); Glucose, Urine (Dipstick) Negative (Negative); Ketone, Urine Negative (Negative); Leukocyte Small (Negative); Nitrite Negative (Negative); Protein, Urine (Dipstick) 100 mg/dL (Neg-Trace); Specific Gravity, Urine 1.015 (1.005-1.030); Urobilinogen 0.2 mg/dL (Less than 2)
[2019-12-19] MEDS: Cholecalciferol 1,000 UNITS (25 MCG) TAB PO SCH (08:33)
[2019-12-19] MEDS: Floranex Packet PO SCH (08:33)
[2019-12-19] MEDS: FLUoxetine HCl 10 MG CAP PO SCH (08:33)
[2019-12-19] MEDS: Cyclobenzaprine 10 MG TAB PO PRN ×3 (08:33→21:19)
[2019-12-19] MEDS: Ferrous Sulfate 325 MG TAB PO SCH (08:36)
[2019-12-19] MEDS: NIFEdipine XL 30 MG TAB PO SCH (08:36)
[2019-12-19] MEDS: Carvedilol 6.25 MG TAB PO SCH ×2 (08:36→16:57)
[2019-12-19 08:37] LABS: Bacteria/HPF 4+ HPF (None Seen); Squamous Epithelial 0-3 HPF (0-3)
[2019-12-19] MEDS: Folic Acid 1 MG TAB PO SCH (08:37)
[2019-12-19] MEDS: Acetaminophen 325 MG TAB PO PRN ×3 (08:37→21:20)
[2019-12-19] MEDS: hydrALAZINE 25 MG TAB PO SCH ×3 (08:37→21:19)
[2019-12-19] MEDS: Nystatin Cream 15 GM TUBE TOP SCH ×2 (08:41→21:20)
[2019-12-19] MEDS: cloNIDine 0.1 MG TAB PO PRN (21:19)
[2019-12-19] MEDS: traZODone HCl 50 MG TAB PO SCH (21:19)
[2019-12-19] MEDS: Melatonin 3 MG TAB PO SCH (21:20)
[2019-12-19] MEDS: Gabapentin 300 MG CAP PO SCH (21:20)
[2019-12-20 05:32] LABS: Anion Gap 14 mmol/L (10-20); BUN (Urea Nitrogen) 43 mg/dL (9.8-20.1); Calc. Creatinine Clearance 21 mL/min (70-130); Calcium 8.1 mg/dL (7.8-10.44); Carbon Dioxide 23 mmol/L (23-31); Chloride 108 mmol/L (98-107); Estimated GFR-MDRD 15; Glucose 89 mg/dL (83-110); Potassium 4.8 mmol/L (3.5-5.1); Sodium 140 mmol/L (136-145)
[2019-12-20] MEDS: Nystatin Cream 15 GM TUBE TOP SCH ×2 (08:10→20:16)
[2019-12-20] MEDS: Furosemide 20 MG TAB PO SCH (08:10)
[2019-12-20] MEDS: FLUoxetine HCl 10 MG CAP PO SCH (08:10)
[2019-12-20] MEDS: NIFEdipine XL 30 MG TAB PO SCH (08:10)
[2019-12-20] MEDS: Carvedilol 6.25 MG TAB PO SCH ×2 (08:10→17:10)
[2019-12-20] MEDS: hydrALAZINE 25 MG TAB PO SCH ×3 (08:10→20:15)
[2019-12-20] MEDS: Ferrous Sulfate 325 MG TAB PO SCH (08:10)
[2019-12-20] MEDS: Cholecalciferol 1,000 UNITS (25 MCG) TAB PO SCH (08:10)
[2019-12-20] MEDS: Folic Acid 1 MG TAB PO SCH (08:10)
[2019-12-20] MEDS: Floranex Packet PO SCH (08:10)
[2019-12-20] MEDS: Cyclobenzaprine 10 MG TAB PO PRN ×2 (11:32→20:15)
[2019-12-20] MEDS: Acetaminophen 325 MG TAB PO PRN ×2 (11:33→20:15)
[2019-12-20] MEDS ORDERED: Cefdinir 300 MG CAP PO SCH (16:15)
[2019-12-20] MEDS: Gabapentin 300 MG CAP PO SCH (20:15)
[2019-12-20] MEDS: Melatonin 3 MG TAB PO SCH (20:15)
[2019-12-20] MEDS: traZODone HCl 50 MG TAB PO SCH (20:16)
[2019-12-21] MEDS: Acetaminophen 325 MG TAB PO PRN ×2 (09:01→20:32)
[2019-12-21] MEDS: Cyclobenzaprine 10 MG TAB PO PRN ×2 (09:01→20:32)
[2019-12-21] MEDS: hydrALAZINE 25 MG TAB PO SCH ×3 (09:05→20:28)
[2019-12-21] MEDS: Cholecalciferol 1,000 UNITS (25 MCG) TAB PO SCH (09:05)
[2019-12-21] MEDS: NIFEdipine XL 30 MG TAB PO SCH (09:06)
[2019-12-21] MEDS: FLUoxetine HCl 10 MG CAP PO SCH (09:06)
[2019-12-21] MEDS: Ferrous Sulfate 325 MG TAB PO SCH (09:07)
[2019-12-21] MEDS: Carvedilol 6.25 MG TAB PO SCH ×2 (09:07→16:59)
[2019-12-21] MEDS: Furosemide 20 MG TAB PO SCH (09:08)
[2019-12-21] MEDS: Floranex Packet PO SCH (09:08)
[2019-12-21] MEDS: Cefdinir 300 MG CAP PO SCH (09:08)
[2019-12-21] MEDS: Folic Acid 1 MG TAB PO SCH (09:08)
[2019-12-21] MEDS: Nystatin Cream 15 GM TUBE TOP SCH ×2 (09:17→20:37)
[2019-12-21] MEDS: cloNIDine 0.1 MG TAB PO PRN (17:00)
[2019-12-21] MEDS: Melatonin 3 MG TAB PO SCH (20:28)
[2019-12-21] MEDS: traZODone HCl 50 MG TAB PO SCH (20:28)
[2019-12-21] MEDS: Gabapentin 300 MG CAP PO SCH (20:28)
[2019-12-22] MEDS: FLUoxetine HCl 10 MG CAP PO SCH (08:41)
[2019-12-22] MEDS: NIFEdipine XL 30 MG TAB PO SCH (08:41)
[2019-12-22] MEDS: hydrALAZINE 25 MG TAB PO SCH ×3 (08:41→20:15)
[2019-12-22] MEDS: Cholecalciferol 1,000 UNITS (25 MCG) TAB PO SCH (08:42)
[2019-12-22] MEDS: Furosemide 20 MG TAB PO SCH (08:42)
[2019-12-22] MEDS: Ferrous Sulfate 325 MG TAB PO SCH (08:42)
[2019-12-22] MEDS: Carvedilol 6.25 MG TAB PO SCH ×2 (08:42→17:01)
[2019-12-22] MEDS: Cefdinir 300 MG CAP PO SCH (08:42)
[2019-12-22] MEDS: Folic Acid 1 MG TAB PO SCH (08:42)
[2019-12-22] MEDS: Floranex Packet PO SCH (08:43)
[2019-12-22] MEDS: Nystatin Cream 15 GM TUBE TOP SCH ×2 (08:53→20:16)
[2019-12-22] MEDS: Acetaminophen 325 MG TAB PO PRN (17:01)
[2019-12-22] MEDS: Cyclobenzaprine 10 MG TAB PO PRN (17:02)
[2019-12-22] MEDS: Melatonin 3 MG TAB PO SCH (20:15)
[2019-12-22] MEDS: traZODone HCl 50 MG TAB PO SCH (20:15)
[2019-12-22] MEDS: Gabapentin 300 MG CAP PO SCH (20:15)
[2019-12-23] MEDS: hydrALAZINE 25 MG TAB PO SCH ×3 (09:45→20:20)
[2019-12-23] MEDS: Folic Acid 1 MG TAB PO SCH (09:46)
[2019-12-23] MEDS: FLUoxetine HCl 10 MG CAP PO SCH (09:46)
[2019-12-23] MEDS: NIFEdipine XL 30 MG TAB PO SCH (09:46)
[2019-12-23] MEDS: Cholecalciferol 1,000 UNITS (25 MCG) TAB PO SCH (09:46)
[2019-12-23] MEDS: Furosemide 20 MG TAB PO SCH (09:47)
[2019-12-23] MEDS: Carvedilol 6.25 MG TAB PO SCH ×2 (09:47→17:29)
[2019-12-23] MEDS: Ferrous Sulfate 325 MG TAB PO SCH (09:47)
[2019-12-23] MEDS: Floranex Packet PO SCH (09:48)
[2019-12-23] MEDS: Acetaminophen 325 MG TAB PO PRN ×2 (09:48→16:37)
[2019-12-23] MEDS: Cyclobenzaprine 10 MG TAB PO PRN ×2 (09:48→20:19)
[2019-12-23] MEDS: Cefdinir 300 MG CAP PO SCH (09:48)
[2019-12-23] MEDS: Nystatin Cream 15 GM TUBE TOP SCH ×2 (09:56→20:23)
[2019-12-23] MEDS: cloNIDine 0.1 MG TAB PO PRN (17:29)
[2019-12-23] MEDS: Gabapentin 300 MG CAP PO SCH (20:19)
[2019-12-23] MEDS: traZODone HCl 50 MG TAB PO SCH (20:19)
[2019-12-23] MEDS: Melatonin 3 MG TAB PO SCH (20:20)
[2019-12-24] MEDS: Nystatin Cream 15 GM TUBE TOP SCH ×2 (09:20→20:51)
[2019-12-24] MEDS: hydrALAZINE 25 MG TAB PO SCH ×3 (10:00→20:50)
[2019-12-24] MEDS: Carvedilol 6.25 MG TAB PO SCH ×2 (10:01→17:07)
[2019-12-24] MEDS: Cholecalciferol 1,000 UNITS (25 MCG) TAB PO SCH (10:02)
[2019-12-24] MEDS: FLUoxetine HCl 10 MG CAP PO SCH (10:02)
[2019-12-24] MEDS: Ferrous Sulfate 325 MG TAB PO SCH (10:02)
[2019-12-24] MEDS: Furosemide 20 MG TAB PO SCH (10:02)
[2019-12-24] MEDS: NIFEdipine XL 30 MG TAB PO SCH (10:03)
[2019-12-24] MEDS: Acetaminophen 325 MG TAB PO PRN ×2 (10:03→15:44)
[2019-12-24] MEDS: Folic Acid 1 MG TAB PO SCH (10:03)
[2019-12-24] MEDS: Cefdinir 300 MG CAP PO SCH (10:03)
[2019-12-24] MEDS: Floranex Packet PO SCH (10:03)
[2019-12-24] MEDS: Cyclobenzaprine 10 MG TAB PO PRN ×2 (10:03→15:45)
[2019-12-24] MEDS: cloNIDine 0.1 MG TAB PO PRN (17:08)
[2019-12-24] MEDS: Melatonin 3 MG TAB PO SCH (20:50)
[2019-12-24] MEDS: Gabapentin 300 MG CAP PO SCH (20:50)
[2019-12-24] MEDS: traZODone HCl 50 MG TAB PO SCH (20:50)
[2019-12-25] MEDS: Acetaminophen 325 MG TAB PO PRN ×3 (06:57→20:26)
[2019-12-25] MEDS: Cyclobenzaprine 10 MG TAB PO PRN ×3 (06:57→20:26)
[2019-12-25] MEDS: Furosemide 20 MG TAB PO SCH (06:57)
[2019-12-25] MEDS: NIFEdipine XL 30 MG TAB PO SCH (07:59)
[2019-12-25] MEDS: Cholecalciferol 1,000 UNITS (25 MCG) TAB PO SCH (08:00)
[2019-12-25] MEDS: Ferrous Sulfate 325 MG TAB PO SCH (08:01)
[2019-12-25] MEDS: Folic Acid 1 MG TAB PO SCH (08:01)
[2019-12-25] MEDS: FLUoxetine HCl 10 MG CAP PO SCH (08:01)
[2019-12-25] MEDS: Carvedilol 6.25 MG TAB PO SCH ×2 (08:01→16:55)
[2019-12-25] MEDS: Floranex Packet PO SCH (08:01)
[2019-12-25] MEDS: Cefdinir 300 MG CAP PO SCH (08:02)
[2019-12-25] MEDS: hydrALAZINE 25 MG TAB PO SCH ×3 (08:02→20:26)
[2019-12-25] MEDS: Nystatin Cream 15 GM TUBE TOP SCH ×2 (08:02→20:29)
[2019-12-25] MEDS: cloNIDine 0.1 MG TAB PO PRN (18:44)
[2019-12-25] MEDS: Gabapentin 300 MG CAP PO SCH (20:26)
[2019-12-25] MEDS: traZODone HCl 50 MG TAB PO SCH (20:26)
[2019-12-25] MEDS: Melatonin 3 MG TAB PO SCH (20:26)
[2019-12-26] MEDS: Cefdinir 300 MG CAP PO SCH (06:31)
[2019-12-26] MEDS: Furosemide 20 MG TAB PO SCH (09:00)
[2019-12-26] MEDS: Cyclobenzaprine 10 MG TAB PO PRN ×2 (09:00→15:23)
[2019-12-26] MEDS: Ferrous Sulfate 325 MG TAB PO SCH (09:01)
[2019-12-26] MEDS: Cholecalciferol 1,000 UNITS (25 MCG) TAB PO SCH (09:01)
[2019-12-26] MEDS: NIFEdipine XL 30 MG TAB PO SCH (09:01)
[2019-12-26] MEDS: Acetaminophen 325 MG TAB PO PRN ×2 (09:02→15:23)
[2019-12-26] MEDS: Folic Acid 1 MG TAB PO SCH (09:02)
[2019-12-26] MEDS: hydrALAZINE 25 MG TAB PO SCH ×3 (09:02→21:01)
[2019-12-26] MEDS: FLUoxetine HCl 10 MG CAP PO SCH (09:02)
[2019-12-26] MEDS: Nystatin Cream 15 GM TUBE TOP SCH ×2 (09:03→21:03)
[2019-12-26] MEDS: Floranex Packet PO SCH (09:03)
[2019-12-26] MEDS: Carvedilol 6.25 MG TAB PO SCH ×2 (10:15→17:53)
[2019-12-26] MEDS: Melatonin 3 MG TAB PO SCH (20:46)
[2019-12-26] MEDS: Acetaminophen ER (8hr) 650 MG TAB PO SCH (21:00)
[2019-12-26] MEDS: Gabapentin 300 MG CAP PO SCH (21:01)
[2019-12-26] MEDS: traZODone HCl 50 MG TAB PO SCH (21:01)
[2019-12-27] MEDS: Cefdinir 300 MG CAP PO SCH (05:36)
[2019-12-27] MEDS: Floranex Packet PO SCH (12:50)
[2019-12-27] MEDS: Furosemide 20 MG TAB PO SCH (12:50)
[2019-12-27] MEDS: Ferrous Sulfate 325 MG TAB PO SCH (12:50)
[2019-12-27] MEDS: Acetaminophen ER (8hr) 650 MG TAB PO SCH ×2 (12:50→20:45)
[2019-12-27] MEDS: Folic Acid 1 MG TAB PO SCH (12:51)
[2019-12-27] MEDS: Cholecalciferol 1,000 UNITS (25 MCG) TAB PO SCH (12:51)
[2019-12-27] MEDS: FLUoxetine HCl 10 MG CAP PO SCH (12:51)
[2019-12-27] MEDS: hydrALAZINE 25 MG TAB PO SCH ×3 (12:53→20:41)
[2019-12-27] MEDS: NIFEdipine XL 30 MG TAB PO SCH (12:54)
[2019-12-27] MEDS: Carvedilol 6.25 MG TAB PO SCH ×2 (12:55→17:27)
[2019-12-27] MEDS: Nystatin Cream 15 GM TUBE TOP SCH ×2 (12:59→20:46)
[2019-12-27] MEDS: Milk Of Magnesia 30 ML UDCUP PO PRN (13:12)
[2019-12-27] MEDS: cloNIDine 0.1 MG TAB PO PRN (17:26)
[2019-12-27] MEDS: Cyclobenzaprine 10 MG TAB PO PRN (20:40)
[2019-12-27] MEDS: traZODone HCl 50 MG TAB PO SCH (20:41)
[2019-12-27] MEDS: Gabapentin 300 MG CAP PO SCH (20:41)
[2019-12-27] MEDS: Melatonin 3 MG TAB PO SCH (20:44)
[2019-12-28] MEDS: Cefdinir 300 MG CAP PO SCH (05:14)
[2019-12-28] MEDS: cloNIDine 0.1 MG TAB PO PRN ×2 (05:14→17:05)
[2019-12-28] MEDS: hydrALAZINE 25 MG TAB PO SCH ×3 (09:05→20:22)
[2019-12-28] MEDS: FLUoxetine HCl 10 MG CAP PO SCH (09:06)
[2019-12-28] MEDS: Cholecalciferol 1,000 UNITS (25 MCG) TAB PO SCH (09:07)
[2019-12-28] MEDS: Folic Acid 1 MG TAB PO SCH (09:09)
[2019-12-28] MEDS: NIFEdipine XL 30 MG TAB PO SCH (09:09)
[2019-12-28] MEDS: Carvedilol 6.25 MG TAB PO SCH ×2 (09:10→17:06)
[2019-12-28] MEDS: Ferrous Sulfate 325 MG TAB PO SCH (09:10)
[2019-12-28] MEDS: Acetaminophen ER (8hr) 650 MG TAB PO SCH ×2 (09:10→20:23)
[2019-12-28] MEDS: Furosemide 20 MG TAB PO SCH (09:11)
[2019-12-28] MEDS: Floranex Packet PO SCH (09:11)
[2019-12-28] MEDS: Nystatin Cream 15 GM TUBE TOP SCH ×2 (09:17→20:23)
[2019-12-28] MEDS: Melatonin 3 MG TAB PO SCH (20:23)
[2019-12-28] MEDS: traZODone HCl 50 MG TAB PO SCH (20:23)
[2019-12-28] MEDS: Gabapentin 300 MG CAP PO SCH (20:23)
[2019-12-29] MEDS: Cefdinir 300 MG CAP PO SCH (05:24)
[2019-12-29] MEDS: Floranex Packet PO SCH (08:03)
[2019-12-29] MEDS: hydrALAZINE 25 MG TAB PO SCH ×3 (08:03→21:14)
[2019-12-29] MEDS: NIFEdipine XL 30 MG TAB PO SCH (08:07)
[2019-12-29] MEDS: Acetaminophen ER (8hr) 650 MG TAB PO SCH ×2 (08:07→21:14)
[2019-12-29] MEDS: Cholecalciferol 1,000 UNITS (25 MCG) TAB PO SCH (08:07)
[2019-12-29] MEDS: Folic Acid 1 MG TAB PO SCH (08:07)
[2019-12-29] MEDS: Furosemide 20 MG TAB PO SCH (08:08)
[2019-12-29] MEDS: Carvedilol 6.25 MG TAB PO SCH ×2 (08:08→17:55)
[2019-12-29] MEDS: Ferrous Sulfate 325 MG TAB PO SCH (08:08)
[2019-12-29] MEDS: FLUoxetine HCl 10 MG CAP PO SCH (08:08)
[2019-12-29] MEDS: Nystatin Cream 15 GM TUBE TOP SCH ×2 (08:09→21:15)
[2019-12-29] MEDS: cloNIDine 0.1 MG TAB PO PRN (15:46)
[2019-12-29] MEDS: Milk Of Magnesia 30 ML UDCUP PO PRN (21:13)
[2019-12-29] MEDS: Gabapentin 300 MG CAP PO SCH (21:14)
[2019-12-29] MEDS: traZODone HCl 50 MG TAB PO SCH (21:14)
[2019-12-29] MEDS: Melatonin 3 MG TAB PO SCH (21:15)
[2019-12-30] MEDS: Cefdinir 300 MG CAP PO SCH (05:18)
[2019-12-30] MEDS: FLUoxetine HCl 10 MG CAP PO SCH (08:56)
[2019-12-30] MEDS: Furosemide 20 MG TAB PO SCH (08:56)
[2019-12-30] MEDS: NIFEdipine XL 30 MG TAB PO SCH (08:57)
[2019-12-30] MEDS: hydrALAZINE 25 MG TAB PO SCH ×3 (08:58→21:18)
[2019-12-30] MEDS: Ferrous Sulfate 325 MG TAB PO SCH (08:59)
[2019-12-30] MEDS: Acetaminophen ER (8hr) 650 MG TAB PO SCH ×2 (09:00→21:18)
[2019-12-30] MEDS: Cholecalciferol 1,000 UNITS (25 MCG) TAB PO SCH (09:01)
[2019-12-30] MEDS: Folic Acid 1 MG TAB PO SCH (09:02)
[2019-12-30] MEDS: Floranex Packet PO SCH (09:02)
[2019-12-30] MEDS: Carvedilol 6.25 MG TAB PO SCH ×2 (09:03→17:11)
[2019-12-30] MEDS: Nystatin Cream 15 GM TUBE TOP SCH ×2 (09:07→21:22)
[2019-12-30] MEDS: traZODone HCl 50 MG TAB PO SCH (21:18)
[2019-12-30] MEDS: Milk Of Magnesia 30 ML UDCUP PO PRN (21:18)
[2019-12-30] MEDS: Gabapentin 300 MG CAP PO SCH (21:18)
[2019-12-30] MEDS: Melatonin 3 MG TAB PO SCH (21:19)
[2019-12-31] MEDS: Melatonin 3 MG TAB PO SCH ×2 (00:49→20:52)
[2019-12-31] MEDS: Cholecalciferol 1,000 UNITS (25 MCG) TAB PO SCH (09:36)
[2019-12-31] MEDS: NIFEdipine XL 30 MG TAB PO SCH (09:37)
[2019-12-31] MEDS: FLUoxetine HCl 10 MG CAP PO SCH (09:38)
[2019-12-31] MEDS: hydrALAZINE 25 MG TAB PO SCH ×3 (09:38→20:52)
[2019-12-31] MEDS: Ferrous Sulfate 325 MG TAB PO SCH (09:40)
[2019-12-31] MEDS: Furosemide 20 MG TAB PO SCH (09:41)
[2019-12-31] MEDS: Carvedilol 6.25 MG TAB PO SCH ×2 (09:41→17:12)
[2019-12-31] MEDS: Folic Acid 1 MG TAB PO SCH (09:41)
[2019-12-31] MEDS: Acetaminophen ER (8hr) 650 MG TAB PO SCH ×2 (09:42→20:54)
[2019-12-31] MEDS: Floranex Packet PO SCH (09:43)
[2019-12-31] MEDS: Nystatin Cream 15 GM TUBE TOP SCH ×2 (10:01→20:55)
[2019-12-31] MEDS: cloNIDine 0.1 MG TAB PO PRN (17:06)
[2019-12-31] MEDS: traZODone HCl 50 MG TAB PO SCH (20:54)
[2019-12-31] MEDS: Gabapentin 300 MG CAP PO SCH (21:03)
[2020-01-01] MEDS: Furosemide 20 MG TAB PO SCH (08:14)
[2020-01-01] MEDS: Cholecalciferol 1,000 UNITS (25 MCG) TAB PO SCH (08:14)
[2020-01-01] MEDS: Acetaminophen ER (8hr) 650 MG TAB PO SCH ×2 (08:14→20:22)
[2020-01-01] MEDS: FLUoxetine HCl 10 MG CAP PO SCH (08:14)
[2020-01-01] MEDS: Folic Acid 1 MG TAB PO SCH (08:14)
[2020-01-01] MEDS: NIFEdipine XL 30 MG TAB PO SCH (08:15)
[2020-01-01] MEDS: Floranex Packet PO SCH (08:18)
[2020-01-01] MEDS: hydrALAZINE 25 MG TAB PO SCH ×3 (08:18→20:22)
[2020-01-01] MEDS: Ferrous Sulfate 325 MG TAB PO SCH (08:18)
[2020-01-01] MEDS: Nystatin Cream 15 GM TUBE TOP SCH ×2 (08:19→20:27)
[2020-01-01] MEDS: cloNIDine 0.1 MG TAB PO PRN (17:02)
[2020-01-01] MEDS: traZODone HCl 50 MG TAB PO SCH (20:22)
[2020-01-01] MEDS: Gabapentin 300 MG CAP PO SCH (20:22)
[2020-01-01] MEDS: Melatonin 3 MG TAB PO SCH (20:27)
[2020-01-02 05:08] LABS: Hemoglobin 8.6 g/dL (12.0-16.0); Platelet Count 242 thou/uL (130-400)
[2020-01-02 05:20] LABS: Anion Gap 16 mmol/L (10-20); BUN (Urea Nitrogen) 46 mg/dL (9.8-20.1); Calc. Creatinine Clearance 21 mL/min (70-130); Calcium 8.4 mg/dL (7.8-10.44); Carbon Dioxide 22 mmol/L (23-31); Chloride 108 mmol/L (98-107); Estimated GFR-MDRD 15; Glucose 98 mg/dL (83-110); Potassium 5.8 mmol/L (3.5-5.1); Sodium 140 mmol/L (136-145)
[2020-01-02] MEDS: Furosemide 20 MG TAB PO SCH (07:33)
[2020-01-02] MEDS: Floranex Packet PO SCH (09:05)
[2020-01-02] MEDS: FLUoxetine HCl 10 MG CAP PO SCH (09:07)
[2020-01-02] MEDS: Acetaminophen ER (8hr) 650 MG TAB PO SCH ×2 (09:07→20:32)
[2020-01-02] MEDS: Folic Acid 1 MG TAB PO SCH (09:09)
[2020-01-02] MEDS: Cholecalciferol 1,000 UNITS (25 MCG) TAB PO SCH (09:09)
[2020-01-02] MEDS: NIFEdipine XL 30 MG TAB PO SCH (09:10)
[2020-01-02] MEDS: hydrALAZINE 25 MG TAB PO SCH ×3 (09:11→20:31)
[2020-01-02] MEDS: Ferrous Sulfate 325 MG TAB PO SCH (09:12)
[2020-01-02] MEDS: Nystatin Cream 15 GM TUBE TOP SCH ×2 (09:13→20:34)
[2020-01-02 10:16] VITALS: BMI 24.7
[2020-01-02] MEDS: cloNIDine 0.1 MG TAB PO PRN (17:28)
[2020-01-02] MEDS: traZODone HCl 50 MG TAB PO SCH (20:32)
[2020-01-02] MEDS: Gabapentin 300 MG CAP PO SCH (20:32)
[2020-01-02] MEDS: Melatonin 3 MG TAB PO SCH (20:33)
[2020-01-03] MEDS: Cholecalciferol 1,000 UNITS (25 MCG) TAB PO SCH (08:33)
[2020-01-03] MEDS: Ferrous Sulfate 325 MG TAB PO SCH (08:33)
[2020-01-03] MEDS: FLUoxetine HCl 10 MG CAP PO SCH (08:33)
[2020-01-03] MEDS: Furosemide 20 MG TAB PO SCH (08:33)
[2020-01-03] MEDS: Floranex Packet PO SCH (08:34)
[2020-01-03] MEDS: Folic Acid 1 MG TAB PO SCH (08:34)
[2020-01-03] MEDS: Acetaminophen ER (8hr) 650 MG TAB PO SCH ×2 (08:34→21:10)
[2020-01-03] MEDS: NIFEdipine XL 30 MG TAB PO SCH (08:45)
[2020-01-03] MEDS: hydrALAZINE 25 MG TAB PO SCH ×3 (08:48→21:09)
[2020-01-03] MEDS: Nystatin Cream 15 GM TUBE TOP SCH ×2 (08:53→21:10)
[2020-01-03] MEDS: Gabapentin 300 MG CAP PO SCH (21:10)
[2020-01-03] MEDS: traZODone HCl 50 MG TAB PO SCH (21:10)
[2020-01-04] MEDS: Melatonin 3 MG TAB PO SCH ×2 (01:21→21:27)
[2020-01-04] MEDS: Cholecalciferol 1,000 UNITS (25 MCG) TAB PO SCH (09:14)
[2020-01-04] MEDS: Acetaminophen ER (8hr) 650 MG TAB PO SCH ×2 (09:15→21:27)
[2020-01-04] MEDS: FLUoxetine HCl 10 MG CAP PO SCH (09:15)
[2020-01-04] MEDS: Furosemide 20 MG TAB PO SCH (09:17)
[2020-01-04] MEDS: Folic Acid 1 MG TAB PO SCH (09:17)
[2020-01-04] MEDS: Ferrous Sulfate 325 MG TAB PO SCH (09:17)
[2020-01-04] MEDS: NIFEdipine XL 30 MG TAB PO SCH (09:19)
[2020-01-04] MEDS: hydrALAZINE 25 MG TAB PO SCH ×3 (09:24→21:27)
[2020-01-04] MEDS: Floranex Packet PO SCH (09:25)
[2020-01-04] MEDS: Milk Of Magnesia 30 ML UDCUP PO PRN (09:26)
[2020-01-04] MEDS: Nystatin Cream 15 GM TUBE TOP SCH ×2 (09:36→21:00)
[2020-01-04] MEDS: Gabapentin 300 MG CAP PO SCH (21:27)
[2020-01-04] MEDS: traZODone HCl 50 MG TAB PO SCH (21:28)
[2020-01-05 05:14] LABS: Hemoglobin 7.9 g/dL (12.0-16.0); Platelet Count 224 thou/uL (130-400)
[2020-01-05 05:17] LABS: Anion Gap 14 mmol/L (10-20); BUN (Urea Nitrogen) 54 mg/dL (9.8-20.1); Calc. Creatinine Clearance 21 mL/min (70-130); Calcium 7.9 mg/dL (7.8-10.44); Carbon Dioxide 22 mmol/L (23-31); Chloride 107 mmol/L (98-107); Estimated GFR-MDRD 15; Glucose 99 mg/dL (83-110); Potassium 6.2 mmol/L (3.5-5.1); Sodium 137 mmol/L (136-145)
[2020-01-05] MEDS: FLUoxetine HCl 10 MG CAP PO SCH (08:53)
[2020-01-05] MEDS: Folic Acid 1 MG TAB PO SCH (08:54)
[2020-01-05] MEDS: Cholecalciferol 1,000 UNITS (25 MCG) TAB PO SCH (08:54)
[2020-01-05] MEDS: Furosemide 20 MG TAB PO SCH (08:54)
[2020-01-05] MEDS: Acetaminophen ER (8hr) 650 MG TAB PO SCH ×2 (08:54→20:25)
[2020-01-05] MEDS: Ferrous Sulfate 325 MG TAB PO SCH (08:54)
[2020-01-05] MEDS: Floranex Packet PO SCH (08:55)
[2020-01-05] MEDS: hydrALAZINE 25 MG TAB PO SCH ×3 (08:59→20:25)
[2020-01-05] MEDS: NIFEdipine XL 30 MG TAB PO SCH (09:00)
[2020-01-05] MEDS: Nystatin Cream 15 GM TUBE TOP SCH ×2 (09:04→20:26)
[2020-01-05] MEDS: cloNIDine 0.1 MG TAB PO PRN (16:39)
[2020-01-05] MEDS: Gabapentin 300 MG CAP PO SCH (20:25)
[2020-01-05] MEDS: traZODone HCl 50 MG TAB PO SCH (20:25)
[2020-01-05] MEDS: Melatonin 3 MG TAB PO SCH (20:26)
[2020-01-06] MEDS: Floranex Packet PO SCH (09:23)
[2020-01-06] MEDS: Ferrous Sulfate 325 MG TAB PO SCH (09:24)
[2020-01-06] MEDS: NIFEdipine XL 30 MG TAB PO SCH (09:24)
[2020-01-06] MEDS: FLUoxetine HCl 10 MG CAP PO SCH (09:24)
[2020-01-06] MEDS: Acetaminophen ER (8hr) 650 MG TAB PO SCH ×2 (09:24→21:07)
[2020-01-06] MEDS: Furosemide 20 MG TAB PO SCH (09:24)
[2020-01-06] MEDS: hydrALAZINE 25 MG TAB PO SCH ×3 (09:25→21:07)
[2020-01-06] MEDS: Folic Acid 1 MG TAB PO SCH (09:25)
[2020-01-06] MEDS: Cholecalciferol 1,000 UNITS (25 MCG) TAB PO SCH (09:25)
[2020-01-06] MEDS: Nystatin Cream 15 GM TUBE TOP SCH ×2 (09:27→21:00)
[2020-01-06] MEDS: cloNIDine 0.1 MG TAB PO PRN (17:46)
[2020-01-06] MEDS: Melatonin 3 MG TAB PO SCH (21:07)
[2020-01-06] MEDS: traZODone HCl 50 MG TAB PO SCH (21:07)
[2020-01-06] MEDS: Gabapentin 300 MG CAP PO SCH (21:07)
[2020-01-07] MEDS: FLUoxetine HCl 10 MG CAP PO SCH (08:49)
[2020-01-07] MEDS: Floranex Packet PO SCH (08:49)
[2020-01-07] MEDS: NIFEdipine XL 30 MG TAB PO SCH (08:50)
[2020-01-07] MEDS: Cholecalciferol 1,000 UNITS (25 MCG) TAB PO SCH (08:50)
[2020-01-07] MEDS: Ferrous Sulfate 325 MG TAB PO SCH (08:50)
[2020-01-07] MEDS: hydrALAZINE 25 MG TAB PO SCH (08:51)
[2020-01-07] MEDS: Furosemide 20 MG TAB PO SCH (08:51)
[2020-01-07] MEDS: Nystatin Cream 15 GM TUBE TOP SCH (08:51)
[2020-01-07] MEDS: Acetaminophen ER (8hr) 650 MG TAB PO SCH (08:51)
[2020-01-07] MEDS: Folic Acid 1 MG TAB PO SCH (08:51)
[2020-01-07] MEDS ORDERED: FLU VACC QS2020-21(65YR UP)/PF 240 MCG/0.7 ML SYRINGE IM ONE (11:00)
[2020-01-07 11:26] VITALS: BP 166/67; TEMP 97.8
--- NOTE | 2020-01-09 01:59 | DIS ---
DATE OF ADMISSION: 10/30/2019 DATE OF DISCHARGE: 01/07/2020 DISCHARGE DIAGNOSES: Chronic kidney disease stage IV, peripheral vascular disease with venous stasis, labile hypertension, chronic hyperkalemia, urinary tract infection, yeast vaginitis, chronic pain related to lumbar spondylosis. HOSPITAL COURSE: 79-year-old female patient transferred from [facility] for weakness and deconditioning related to COVID-19 positive status without respiratory symptoms. She had experienced profound weakness and decompensation of her kidney function with generalized weakness and admitted to [facility] facility for PT and OT. During the course of her stay at the [facility], she developed urinary tract infection on 11/06 that was treated with Levaquin and Zosyn, found to be positive Klebsiella and then again on 12/18 treated with third generation cephalosporin cefdinir. She is chronically anemic. Her H and H have ranged from 7.5 to 8.6. Her platelets are normal at 242 upon discharge. Her creatinine is stable at 2.93 to 2.98. She is followed by Renal, Dr. Dwain Villalobos. She will go home on home health and lives near family, who have arranged private caregiver for her. She will continue PT, OT through home health. She has an appointment with Dr. Dwain Villalobos on 01/20/2020 and her PCP is Alicia Lynne. She will schedule follow up with her PCP within two weeks of discharge. DISCHARGE MEDICATIONS: 1. Melatonin 3 mg at bedtime. 2. Tylenol ER 650 mg q.12. 3. Hydralazine 50 mg t.i.d. 4. Clonidine 0.1 mg b.i.d. p.r.n. systolic blood pressure greater than 160. 5. Cyclobenzaprine 5 mg at bedtime p.r.n. muscle spasm. 6. Floranex 1 g daily. 7. Fluoxetine 40 mg daily. 8. Folic acid 1 mg daily. 9. Gabapentin 300 mg daily at bedtime. 10. Ferrous sulfate 325 mg daily with food. 11. Furosemide 20 mg daily. 12. Nystatin topical b.i.d. p.r.n. cutaneous yeast. 13. Nifedipine XL 60 mg daily. 14. Protonix 40 mg daily. 15. Trazodone 50 mg daily at bedtime. 16. She will continue cholecalciferol 2000 units daily. CONDITION UPON DISCHARGE: Improved. ACTIVITY: Ad janet. She will be using a rolling walker with standby assistance. She is a fall risk. DIET: She is on a renal diet with 2000 fluid per 24-hour restriction. CODE: Full code. DISPOSITION: Discharging home on home health. Job ID: [id number] MTDD
--- NOTE | 2020-01-23 13:44 | PQF ---
CLINICAL DOCUMENTATION CLARIFICATION FORM: Dear : Lucila Dsouza DO Date / Time: 01/23/2020 Please exercise your independent, professional judgment in responding to the clarification form. Clinical indicators are provided on the bottom of this form for your review Please check appropriate box(es): Conflicting documentation was noted in the Medical Record; please clarify if patient is being treated/monitored for: [ ] Acute kidney injury [ ] Acute renal insufficiency [ ] Other diagnosis (Please specify if any) [ ] Unable to determine Physician Signature: Date/Time: For continuity of documentation, please document condition throughout progress notes and discharge summary. Thank You. To be completed by CDI/Coding staff for physician review: Present Clinical Indicators - Signs / Symptoms / Labs Results and Location in Medical Record [x] She was found to have hyponatremia/hyperkalemia and PETEY was admitted H&P on 10/29 [x] PETEY on CKD- start fluids, cr 2.73 H&P on 10/29 [x] Dependent edema tolerate lasix well 2/2 renal insufficiency. cont Progress notes on 12/07 [x] PETEY on CKD Re CBC. BMP Progress notes on 11/18 [x] PETEY Re BMP in am Progress notes on 11/18 Present Risk Factors Results and Location in Medical Record [x] Aged person 79yrs H&P on 10/29 [x] Deconditioning H&P on 10/29 [x] HTN, CKD H&P on 10/29 Present Treatments Results and Location in Medical Record [x] Creatinine is increased to 2.73, so will start the patient on fluids H&P on 10/29 [x] She is on renal diet with 2000 fluid per 24 hr restriction Discharge summary on 01/08 [ ] CDS/Heavy Equipment Field Mechanic Signature: AAS Phone #: Date/Time: 01/23/2020 This is a permanent part of the Medical Record [facility]
--- NOTE | 2020-01-23 21:27 | PQF ---
CLINICAL DOCUMENTATION CLARIFICATION FORM: Dear : Lucila Dsouza DO Date / Time: 01/23/2020 Please exercise your independent, professional judgment in responding to the clarification form. Clinical indicators are provided on the bottom of this form for your review Please check appropriate box(es): HEART FAILURE: A. ACUITY [ ] Acute [ ] Acute on Chronic [ ] Chronic B. TYPE: [ ] Systolic / HFrEF [ ] Diastolic / HFpEF [ ] Combined Systolic / Diastolic [ ] Hypertensive Heart and Kidney disease [ ] Hypertensive Heart Disease [ ] Hypertensive Kidney Disease [ ] Other diagnosis (Please specify if any) [ ] Unable to determine In addition, please specify: Present on Admission (POA): [ ] Yes [ ] No [ ] Unable to determine Physician Signature: Date/Time: For continuity of documentation, please document condition throughout progress notes and discharge summary. Thank You. To be completed by CDI/Coding staff for physician review: Present Clinical Indicators - Signs / Symptoms / Labs Results and Location in Medical Record [ ] Ejection Fraction = % [ ] Dyspnea, Hypoxia [x] Peripheral edema Lower extremity edema Progress notes on 12/09 [x] Elevated BNP BNP 181.5 H Laboratory on 11/27 [x] CHF stable Progress notes on 12/30 [ ] Orthopnea / SOB / dyspnea [ ] Pleural effusion / pulmonary edema [x] CXR results Cardiomegaly chest X ray [ ] Arrhythmia--tachycardia Present Risk Factors Results and Location in Medical Record [ ] History of CAD/ischemic heart disease [x] CKD Hypertension HTN, CKD 4 H&P on 10/29 [ ] History of CA Present Treatments Results and Location in Medical Record [x] Discharge medications Furosemide 20 mg daily Discharge summary on 01/08 [x] Lasix 20mg IV Medication on 11/27 [x] Lasix 40mg IV Medication on 11/29 [x] Lasix 20mg PO Medication on 12/05 to 01/06 [ ] AICD [ ] Cardiology Consult CDS/Airline Reservation Agent Signature: AAS Phone #: Date/Time: 01/23/2020 This is a permanent part of the Medical Record [facility]
== END 2020-01-07 11:07 | disposition home health service (06) | DRG 947 ==
LOC: BURMED 19:43
PROVIDERS: ADMIT Family Medicine; ATTEND Family Medicine
DX: R53.1 Weakness (principal); U07.1 COVID-19; N17.9 Acute kidney failure, unspecified; N39.0 Urinary tract infection, site not specified; E87.1 Hypo-osmolality and hyponatremia; I13.0 Hypertensive heart and chronic kidney disease with heart failure and stage 1 through stage 4 chronic kidney disease, or unspecified chronic kidney disease; R44.3 Hallucinations, unspecified; N18.4 Chronic kidney disease, stage 4 (severe); I73.9 Peripheral vascular disease, unspecified; E87.5 Hyperkalemia; B37.3 Candidiasis of vulva and vagina; M47.896 Other spondylosis, lumbar region; F41.9 Anxiety disorder, unspecified; F32.9 Major depressive disorder, single episode, unspecified; E55.9 Vitamin D deficiency, unspecified; M48.061 Spinal stenosis, lumbar region without neurogenic claudication; B96.1 Klebsiella pneumoniae [K. pneumoniae] as the cause of diseases classified elsewhere; Z96.642 Presence of left artificial hip joint; D63.1 Anemia in chronic kidney disease; M46.1 Sacroiliitis, not elsewhere classified; M54.16 Radiculopathy, lumbar region; K52.9 Noninfective gastroenteritis and colitis, unspecified; I50.9 Heart failure, unspecified; M17.2 Bilateral post-traumatic osteoarthritis of knee; E53.8 Deficiency of other specified B group vitamins; D72.829 Elevated white blood cell count, unspecified; D70.9 Neutropenia, unspecified; L30.4 Erythema intertrigo; Z88.1 Allergy status to other antibiotic agents; Z88.8 Allergy status to other drugs, medicaments and biological substances; Z79.82 Long term (current) use of aspirin; Z90.49 Acquired absence of other specified parts of digestive tract; Z90.710 Acquired absence of both cervix and uterus
CPT/HCPCS: 36415; 36416; 71045; 71250; 74177; 80048; 81001; 82306; 82607; 82728; 82746; 83540; 83550; 83880; 83970; 85007; 85014; 85018; 85025; 85027; 85049; 86850; 86900; 86901; 87040; 87077; 87086; 87186; 87324; 87449; 90471; 90662; G0008; J1940; J2543; J3490; J7050